=== PATIENT | female | born 1955 ===

== ENCOUNTER 2020-07-31 05:47 | Emergency (ER) | payer OTHER, SELFPAY ==
[2020-07-31 05:58] VITALS: BP 112/87; PULSE 100; RESP 18; TEMP 37.2; O2SAT 96
[2020-07-31 07:19] VITALS: BP 130/90; PULSE 100; RESP 20; TEMP 36.8; O2SAT 95; BMI 27.4
--- NOTE | 2020-07-31 07:27 | XR_ITS ---
EXAMINATION: XR CHEST CLINICAL INFORMATION: Cough. COMPARISON: None TECHNIQUE: Frontal view of the chest was obtained. FINDINGS: The lungs are well-expanded with patchy opacity in the right lung base likely summation shadow. However underlying developing infiltrate is not excluded. Mild increased interstitial markings are seen in both lung bases well. Heart size and vascularity is normal. No gross bony abnormality. XR/XR chest 1V IMPRESSION: Patchy focal opacity right lower lobe likely summation shadows from underlying ribs and vascular markings. Underlying infiltrate is hard to exclude. Recommend follow-up chest x-ray in 24 to 72 hours. There is increased interstitial markings in both lung bases as well.
--- NOTE | 2020-07-31 07:28 | ED.URI ---
HPI - URI/Sore Throat General Chief Complaint: Weakness Stated Complaint: bronchitis Time Seen by Provider: 07/31/20 07:24 Source: patient Mode of arrival: ambulatory Limitations: no limitations History of Present Illness HPI Narrative: THIS IS A 65 YEARS OLD OF FEMALE OR PRESENTED TO THE EMERGENCY DEPARTMENT WITH A CHIEF COMPLAINT OF WEAKNESS , COUGH, SHORTNESS OF BREATH. SHE DENIES ANY FEVER CHILLS VOMITING OR DIARRHEA. SHE DOES HAVE A HISTORY OF ASTHMA SHE IS A FORMER SMOKER. CURRENT SYMPTOMS STARTED 6 DAYS AGO MD elicited complaint: cough Pertinent past history: asthma Onset (ago): day(s) (6) Consistency: constant Severity: moderate Description of mucous: clear Able to tolerate fluids by mouth: Yes Exacerbating factors: nothing Relieving factors: nothing Associated symptoms: denies other symptoms Related Data Previous Rx's Medication Instructions Recorded doxycycline monohydrate 100 mg PO BID #20 cap 07/31/20 Allergies Allergy/AdvReac Type Severity Reaction Status Date / Time No Known Allergies Allergy Unverified 04/13/20 16:02 [No Known Allergies*] Review of Systems Review of Systems: Yes all other systems are reviewed and are negative Cardiovascular: Cardiovascular: Reports no additional cardiovascular complaints Respiratory: Respiratory: Reports no additional respiratory complaints Gastrointestinal: Gastrointestinal: Reports no additional gastrointestinal complaints Neurologic: Reports system reviewed and no additional complaints, except as documented PMFSH Past Medical History Attestation statement: The following information was validated with the patient. Medical History Asthma Surgical History History of hysterectomy History of hysterectomy for cancer History of hysterectomy for cancer Social History Social History Advance Directives: No Advance Directives Information Provided: No Physical Exam Vital Signs: Vital Signs: Last Vital Signs Temp 98.3 F 07/31/20 07:19 Pulse 100 07/31/20 07:19 Resp 20 07/31/20 07:19 BP 130/90 H 07/31/20 07:19 Pulse Ox 95 07/31/20 07:19 Body Mass Index 27.4 Const: Other: THE PATIENT IS AWAKE AND ALERT IN NOT ACUTE DISTRESS SITTING IN THE CHAIR DURING MY EXAM SHE HAS GOOD O2 SAT 96% ON ROOM AIR HENMT: Head: Yes normal to inspection Ears: hearing grossly normal bilaterally General nose exam: Normal external nose present Face and sinus: Yes normal facial exam Eyes: General: appearance normal, both eyes and all related structures Neck: Other: THE NECK IS SUPPLE FULL RANGE OF MOTION Chest: Chest palpation & inspection: normal inspection of the chest Resp: Other: LUNGS ARE CLEAR TO AUSCULTATION NO WHEEZING NO RALES Cardio: Other: REGULAR RATE AND RHYTHM Skin: Other: SKIN SHOWS NO RASHES Neuro: Other: PATIENT IS AWAKE AND ALERT ORIENTED X3 AND NEUROLOGICALLY INTACT Course Reevaluation(s) Reevaluation #1: She remained nontoxic a she is oxygenating well with her O2 sats were 96%, coronavirus test is positive, the chest x-ray showed lobar infiltrate today for I think is indicated on an antibiotic a week syndrome with the doxycycline 100 mg p.o. b.i.d.. Her chest x-ray he has no consistent with the COVID pneumonia but rather with the lobar pneumonitis Time: 09:22 MDM - URI/Sore Throat Lab Data Labs: Lab Results 07/31/20 Range/Units 07:39 Coronavirus (PCR) POSITIVE A (Negative) Influenza Type A (PCR) NEGATIVE (Negative) Influenza Type B (PCR) NEGATIVE (Negative) RSV RNA Qual (PCR) NEGATIVE (Negative) Discharge Plan Discharge Clinical Impression: Pneumonia, SARS-associated coronavirus infection Patient Disposition: Home, Self-Care Instructions: Pneumonia (ED) Additional Instructions: You tested positive for coronavirus, self-isolation he is recommended, you oxygenating well you do not meet criteria for admission. You chest x-ray showed the liver pneumonia therefore we sent an antibiotic as well to your pharmacy. Return if you worse a few short of breath Prescriptions: New doxycycline monohydrate 100 mg capsule 100 mg PO BID Qty: 20 RF: 0 Referrals: Po,Raphael Weaver MD [Primary Care Provider] - 2 days (PLEASE FOLLOW-UP WITH YOUR PRIMARY CARE PHYSICIAN IN A COUPLE OF DAYS YOU CHEST X-RAY RAISES THE QUESTION OF PNEUMONIA THEREFORE YOU WILL NEED FOLLOW-UP CHEST X-RAY IN ABOUT A WEEK TAKE THE ANTIBIOTIC DIRECTED) Stand Alone Forms: Work/School Release
[2020-07-31 08:55] LABS: Influenza A PCR NEGATIVE (Negative); Influenza B PCR NEGATIVE (Negative); Resp Syncy Virus RNA Qual PCR NEGATIVE (Negative); SARS COV2 PCR INHOUSE POSITIVE (Negative)
== END 2020-07-31 10:07 | disposition home or self-care (01) ==
PROVIDERS: Emergency Provider Emergency Medicine; PCP Internal Medicine
DX: U07.1 COVID-19 (principal)
CPT/HCPCS: 0241U; 36415; 71045; 99283

== ENCOUNTER 2020-08-14 10:24 | Outpatient (REF) | payer OTHER, SELFPAY ==
--- NOTE | 2020-08-14 10:29 | XR_ITS ---
EXAMINATION: XR CHEST CLINICAL INFORMATION: Pneumonia. Follow-up COMPARISON: None TECHNIQUE: 2 views of the chest were obtained. FINDINGS: The lungs are well-expanded with diffuse patchy airspace opacities seen in both lungs. Some of the opacities are peripherally based and extensive compared to previous chest x-ray 07/31/2020. Heart size and pulmonary vascularity is normal. No gross bony abnormality seen. XR/XR chest 2V IMPRESSION: Extensive bilateral infiltrates, peripherally based especially left lung. Findings are suspicious for Covid related infection.
== END 2020-08-14 10:25 | disposition home or self-care (01) ==
LOC: HO.XRAY 10:24
PROVIDERS: PCP Internal Medicine; Visit Provider Physician Assistant
DX: J18.9 Pneumonia, unspecified organism (principal)
CPT/HCPCS: 71046

== ENCOUNTER 2020-08-25 11:04 | Outpatient (REF) | payer OTHER, SELFPAY ==
--- NOTE | 2020-08-25 11:08 | XR_ITS ---
EXAMINATION: XR CHEST CLINICAL INFORMATION: Pneumonia. COMPARISON: 08/14/2019 and 07/31/2020 chest radiographs. TECHNIQUE: 2 views of the chest were obtained. FINDINGS: Persistent infiltrates are seen predominantly in the left midlung field peripherally without significant change. There is minimal blunting of the left costophrenic angle without significant change as well. Right lower lung infiltrates have mildly decreased. The heart and mediastinal structures are unremarkable. XR/XR chest 2V IMPRESSION: Bilateral infiltrates, left greater than right with mild interval improvement in the right lower lung.
== END 2020-08-25 11:05 | disposition home or self-care (01) ==
LOC: HO.XRAY 11:04
PROVIDERS: PCP Internal Medicine; Visit Provider Physician Assistant
DX: J18.9 Pneumonia, unspecified organism (principal); U07.1 COVID-19
CPT/HCPCS: 71046

== ENCOUNTER → 2020-10-12 14:04 | Outpatient (BNVA) | payer OTHER, SELFPAY | PROVIDERS: PCP Internal Medicine; Visit Provider Internal Medicine Pulmonary Disease ==

== ENCOUNTER 2020-10-18 13:41 | Outpatient (REF) | payer OTHER, SELFPAY ==
[2020-10-18 14:05] LABS: MANUAL DIFF FLAG NO
[2020-10-18 14:09] LABS: Basophils Percent Auto 0.5 % (0-2); Eosinophils Absolute Auto 0.1 X10*3/uL (0.0-0.4); Eosinophils Percent Auto 1.3 % (0-4); Hematocrit 36.6 % (37-47); Hemoglobin 12.3 g/dl (12.0-16.0); Imm Gran Abs Auto 0.02 X10*3/uL (0.00-0.03); Imm Gran Pct Auto 0.3 % (0.0-0.4); Lymphocytes Absolute Auto 3.4 X10*3/uL (1.2-4.9); Lymphocytes Percent Auto 43.6 % (20-40); Mean Corpuscular HGB Conc 33.6 g/dl (31.0-35.0); Mean Corpuscular Hemoglobin 32.1 pg (27.0-33.0); Mean Corpuscular Volume 95.6 fL (80-98); Mean Platelet Volume 10.2 fL (9.4-12.3); Monocytes Absolute Auto 0.5 X10*3/uL (0.1-1.2); Monocytes Percent Auto 6.4 % (2-11); Neutrophils Absolute Auto 3.7 X10*3/uL (2.0-8.3); Neutrophils Percent Auto 47.9 % (45-73); Platelet Count 223 X10*3/uL (160-400); Red Blood Count 3.83 X10*6/uL (4.20-5.50); Red Cell Distribution Width 13.3 % (11.0-16.0); White Blood Count 7.8 X10*3/uL (4.8-10.8)
== END 2020-10-18 13:42 | disposition home or self-care (01) ==
LOC: HO.LAB 13:41
PROVIDERS: PCP Internal Medicine; Visit Provider Internal Medicine Pulmonary Disease
DX: Z91.09 Other allergy status, other than to drugs and biological substances (principal)
CPT/HCPCS: 36415; 82785; 85025; 86003

== ENCOUNTER 2020-10-27 07:33 | Outpatient (REF) | payer OTHER, SELFPAY ==
--- NOTE | ~2020-10-27 | CT_ITS ---
EXAMINATION: CT CHEST WITHOUT CONTRAST CLINICAL INFORMATION: Follow-up pulmonary nodule COMPARISON: Previous exams most recent chest CT December 2013 and chest x-ray July 2020 TECHNIQUE: Multidetector volumetric CT imaging of the chest was done. Axial MIP volume rendering provided. Sagittal and coronal reformatted images were obtained. This CT examination was performed using dose optimization techniques as appropriate, variously including the following: *Automated exposure control *Adjustment of mA and/or kV according to patient size (this includes techniques or standardized protocols for targeted exams where dose is matched to indication/reason for exam; i.e. extremities or head) *Use of iterative reconstruction technique DLP: 142 mGy-cm FINDINGS: LUNGS: There is interval increase in size in the superior segment left lower lobe nodule. This measures 7 x 10 mm axial image 154 series 7 compared to 4 x 6 mm on previous exam. There is a 2 mm calcified right upper lobe nodule axial image 185 series 7 that is stable. There is nodular thickening along the right major fissure that is stable. There is a 3 mm right lower lobe nodule axial image 329 series 7 that is stable. There is a 3 mm peripheral or subpleural calcified right lower lobe nodule axial image 273 and lingular nodule axial image 273 series 7 that is stable. There are increased peripheral or subpleural reticular markings and increased parenchymal attenuation that is new. MEDIASTINUM: The mediastinum is normal. PLEURA: There is no pleural effusion. No pleural mass or thickening. AXILLA: No axillary lymphadenopathy. There is a new small nodule in the left breast that measures 6 mm. Axial image 19 series 3, sagittal reconstructed image 17 and coronal reconstructed image 5 Correlation with mammogram and if needed ultrasound could be considered.. There is a new subcutaneous nodule in the right upper posterior back that measures 1 x 2 cm this is only partially visualized. Hounsfield units measure 30 not compatible with a simple cystic or fatty lesion. This is not appreciated on recent most recent exam from 2013. This is increased in size from 8 x 13 mm on February 2013 exam. UPPER ABDOMEN: There is a low-attenuation lesion in the left lobe of the liver that measures 2.7 cm that is stable. OSSEOUS STRUCTURES: There are mild degenerative changes of the spine. CT/CT chest wo con IMPRESSION: Interval increase in left lower lobe nodule now measuring 7 x 10 mm. Other small calcified and noncalcified pulmonary nodules are stable. New increased peripheral interstitial lung markings and attenuation. It is uncertain whether this is related to previous pneumonia or could represent interstitial lung disease.. New 6 mm left central breast nodule. Correlation with mammogram and ultrasound recommended.
== END 2020-10-27 07:34 | disposition home or self-care (01) ==
LOC: HO.CT 07:33
PROVIDERS: PCP Internal Medicine; Visit Provider Internal Medicine Pulmonary Disease
DX: R91.1 Solitary pulmonary nodule (principal)
CPT/HCPCS: 71250

== ENCOUNTER → 2020-11-21 14:52 | Outpatient (BNVA) | payer OTHER, SELFPAY | PROVIDERS: PCP Internal Medicine; Visit Provider Internal Medicine Pulmonary Disease ==

== ENCOUNTER 2021-03-08 13:36 | Outpatient (REF) | payer OTHER, SELFPAY ==
--- NOTE | ~2021-03-08 | CT_ITS ---
EXAMINATION: CT CHEST WITHOUT CONTRAST CLINICAL INFORMATION: Solitary pulmonary nodule. COMPARISON: Most recent CT chest dated 10/27/2020. TECHNIQUE: Multidetector volumetric CT imaging of the chest was done. Axial MIP volume rendering provided. Sagittal and coronal reformatted images were obtained. This CT examination was performed using dose optimization techniques as appropriate, variously including the following: *Automated exposure control *Adjustment of mA and/or kV according to patient size (this includes techniques or standardized protocols for targeted exams where dose is matched to indication/reason for exam; i.e. 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 LUNGS: Redemonstration of a soft tissue nodule within the apex of the left lower lobe measuring 1.0 x 0.7 cm, not significantly changed. Stable anterior right upper lobe 0.2 cm calcified granuloma. Stable 0.3 cm subpleural nodule within the right lower lobe (axial image 370/617). Additional stable tiny calcified granulomas. No new pulmonary nodule or mass. Bibasilar atelectasis versus scarring, unchanged. No new large, confluent airspace consolidation. The central airways are patent. MEDIASTINUM: No cardiomegaly. No pericardial effusion. No thoracic aortic dilatation. No superior mediastinal or hilar lymphadenopathy. PLEURA: There is no pleural effusion. No pleural mass or thickening. CHEST WALL/AXILLA: Stable soft tissue nodule within the left breast measuring up to 0.7 cm, unchanged. No new axillary or internal mammary lymphadenopathy. UPPER ABDOMEN: Stable probable fatty infiltration adjacent to the falciform ligament. Otherwise, the visualized upper abdominal structures are unremarkable. OSSEOUS STRUCTURES: Unremarkable. CT/CT chest wo con IMPRESSION: 1. Stable soft tissue nodule within the apex of the left lower lobe measuring 1.0 cm, not significantly changed. Additional stable tiny calcified and noncalcified pulmonary nodules. Bibasilar atelectasis versus scarring appears unchanged. 2. No new pulmonary nodule, mass, or airspace consolidation. 3. Stable soft tissue nodule measuring 0.7 cm within the left breast. No new axillary or internal mammary lymphadenopathy.
== END 2021-03-08 13:37 | disposition home or self-care (01) ==
LOC: HO.CT 13:36
PROVIDERS: PCP Internal Medicine; Visit Provider Internal Medicine Pulmonary Disease
DX: R91.1 Solitary pulmonary nodule (principal)
CPT/HCPCS: 71250

== ENCOUNTER → 2021-05-15 13:24 | Outpatient (BNVA) | payer OTHER, SELFPAY | PROVIDERS: PCP Internal Medicine; Visit Provider Internal Medicine Pulmonary Disease ==

== ENCOUNTER → 2021-08-07 13:15 | Outpatient (BNVA) | payer OTHER, SELFPAY | PROVIDERS: PCP Internal Medicine; Visit Provider Internal Medicine Pulmonary Disease ==

== ENCOUNTER 2022-03-07 13:09 | Outpatient (REF) | payer OTHER, SELFPAY ==
--- NOTE | ~2022-03-07 | CT_ITS ---
EXAMINATION: CT CHEST WITHOUT CONTRAST CLINICAL INFORMATION: Lung nodule. COMPARISON: CT chest 03/08/2021, 10/27/2020, 01/20/2014 and 03/03/2013. TECHNIQUE: Multidetector volumetric CT imaging of the chest was done. Axial MIP volume rendering provided. Sagittal and coronal reformatted images were obtained. This CT examination was performed using dose optimization techniques as appropriate, variously including the following: *Automated exposure control *Adjustment of mA and/or kV according to patient size (this includes techniques or standardized protocols for targeted exams where dose is matched to indication/reason for exam; i.e. 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 LUNGS: There is 9 x 6 mm nodule in the superior segment of the left lower lobe (axial image 17/3). It measured [address] 03/03/2013. It has increased in size. There are clustered nodular densities seen in the left upper lobe with reticular stranding (image 20/3). There is subpleural linear stranding throughout the left lower lobe, likely chronic atelectasis or scarring, similar to the previous study. Punctate 2 mm right upper lobe calcified nodule (image 22/3); a 3 mm nodule, subpleural location, in the right lower lobe (axial image 395/8 and image 362/8) are stable. Multiple patchy ill-defined opacities in the left lower lobe show minimal improvement. There are atelectatic changes or scarring in the lingula. MEDIASTINUM: The thyroid lobes are symmetric and normal. Central trachea and the bronchi are widely patent. The heart size and the great vessels are normal caliber. No abnormal-sized lymph nodes are seen. No pericardial effusion. PLEURA: There is no pleural effusion. No pleural mass or thickening. AXILLAE: No lymphadenopathy. UPPER ABDOMEN: The visualized liver, spleen and adrenal glands are unremarkable. OSSEOUS STRUCTURES: No lytic or sclerotic process seen. CT/CT chest wo con IMPRESSION: Minimal increase in the left lower lobe superior segment nodule since 2012. Ill-defined ground-glass opacities in the left lower lobe show minimal improvement since 03/08/2021. Bilateral lower lobe scarring or atelectatic changes and other nodules are stable since 2020. No new pulmonary nodule or mass is seen. Fleischner guidelines were followed.
== END 2022-03-07 13:10 | disposition home or self-care (01) ==
LOC: HO.CT 13:09
PROVIDERS: PCP Internal Medicine; Visit Provider Internal Medicine Pulmonary Disease
DX: R91.1 Solitary pulmonary nodule (principal)
CPT/HCPCS: 71250

== ENCOUNTER 2022-05-02 14:05 | Outpatient (REF) | payer OTHER, SELFPAY ==
--- NOTE | ~2022-05-02 | XR_ITS ---
EXAMINATION: XR CHEST CLINICAL INFORMATION: COPD COMPARISON: Chest x-ray 08/25/2020, chest CT 03/07/2022 TECHNIQUE: 2 views of the chest were obtained. FINDINGS: No airspace consolidation. Curvilinear/mild streaky opacities in the right lung base and mid to lower lung consistent with subsegmental atelectasis or scarring. No pleural effusion or pneumothorax. Approximately 7 mm nodular density projecting over the left upper lung corresponding to the superior segment pulmonary nodule on prior CT. Normal cardiomediastinal silhouette and pulmonary vascularity. No acute osseous injury. Unchanged mild chronic wedging of a lower thoracic vertebral body at the thoracolumbar junction. XR/XR chest 2V IMPRESSION: 1. Mild subsegmental atelectasis or scarring bilaterally left greater than right. 2. No acute pulmonary process. 3. 7 mm nodular density in the left lung corresponding to the superior segment left lower lobe nodule on CT.
== END 2022-05-02 14:06 | disposition home or self-care (01) ==
LOC: HO.XRAY 14:05
PROVIDERS: PCP Internal Medicine; Visit Provider Internal Medicine Pulmonary Disease
DX: J44.9 Chronic obstructive pulmonary disease, unspecified (principal)
CPT/HCPCS: 71046

== ENCOUNTER 2022-09-24 12:41 | Emergency (ER) | payer OTHER, SELFPAY ==
--- NOTE | ~2022-09-24 | XR_ITS ---
EXAMINATION: XR CHEST CLINICAL INFORMATION: Chest pain COMPARISON: Chest radiograph 05/02/[address] chest 03/07/2022. TECHNIQUE: 2 views of the chest were obtained. FINDINGS: Cardiac and mediastinal silhouettes are normal in appearance. The lungs and pleural spaces are clear. The left lung pulmonary nodule seen on CT is not clearly visualized on this exam. No acute osseous abnormality. XR/XR chest 2V IMPRESSION: No evidence of pulmonary edema or acute consolidation. The previously noted pulmonary nodule seen on the CT chest of 03/07/2022 is is not evaluated on this exam.
--- NOTE | ~2022-09-24 | CT_ITS ---
EXAMINATION: CT ANGIOGRAM OF THE CHEST WITH AND WITHOUT CONTRAST (CT PULMONARY ANGIOGRAM FOR PE) CLINICAL INFORMATION: Reason for Exam cp/sob tachycardia questioning PE COMPARISON: 03/07/2022, 10/27/2020 and 03/03/2013 TECHNIQUE: Prior to contrast administration, noncontrast localization images were obtained. Subsequently, multidetector volumetric imaging was performed from the thoracic inlet to below the diaphragms following the administration of 65 mL Omnipaque 350 intravenous contrast. No contrast reaction reported Sagittal, coronal, and MIP oblique sagittal reformatted images were obtained on the CT workstation, uploaded to PACS, and reviewed. This CT examination was performed using dose optimization techniques as appropriate, variously including the following: *Automated exposure control *Adjustment of mA and/or kV according to patient size (this includes techniques or standardized protocols for targeted exams where dose is matched to indication/reason for exam; i.e. extremities or head) *Use of iterative reconstruction technique Total exam dose-length product 678 mGy-cm FINDINGS: QUALITY OF STUDY/CONTRAST BOLUS: Satisfactory. PULMONARY ARTERIES: No central or segmental pulmonary emboli. THORACIC AORTA: No aneurysm or dissection. LUNG: There is a 9 mm pulmonary nodule in the superior segment of the left lower lobe on image 142 of series 7 which is unchanged from 11/15/2021 and increased in size from 5 mm on the study from 03/03/2013, possibly a hamartoma. There is a 1 cm nodule in the lateral aspect of the left upper lobe which has lobular margins and is increased in size from 5 mm on the prior study. Multiple small adjacent satellite nodules are evident within this region along the bronchial distribution, measuring up to 5 mm in diameter, increased as compared to prior. Multiple small separate nodules are evident in the left upper lobe in a peripheral distribution, increased in size as compared to prior with subtle groundglass attenuation measuring up to 5 mm in diameter as seen on image 129 of series 7. New focal airspace consolidation is evident within the left lingula anteriorly. Linear, reticular subpleural opacities are again seen in the posterior aspects of the lower lobes bilaterally. Central airways are clear. PLEURA: No pleural effusion or pneumothorax. MEDIASTINUM: Normal heart size. No pericardial effusion. No hilar or mediastinal lymphadenopathy. No evidence of septal bowing or right heart strain. CORONARY ARTERY CALCIFICATION: None visualized on this study. CHEST WALL/AXILLA: No axillary or internal mammary lymphadenopathy. OSSEOUS STRUCTURES: Mild degenerative disc disease is evident in the lower thoracic spine. No acute fracture or malalignment. A sebaceous cyst is present in the posterior subcutaneous fat at the cephalad margin of the study, overlying the T1 spinous process. UPPER ABDOMEN: A 2.5 cm hypoattenuating lesion in hepatic segment 4A is unchanged and at 05/16/2013. No acute findings in the upper abdomen. No reflux of contrast into the hepatic veins to suggest elevated right heart pressures. CT/CT angio chest PE protocol IMPRESSION: 1. No evidence of pulmonary emboli. 2. New focal airspace consolidation in the left lingula, concerning for pneumonia 3. Multiple pulmonary nodules in the left upper lobe, the largest of which measures 1 cm in diameter. These nodules have increased in size as compared to prior and may correspond to an inflammatory endobronchial process, though no malignancy excluded. Continued follow-up is advised. Consider CT at 3-6 months, then consider CT at 18-24 months. VTE: negative
--- NOTE | 2022-09-24 12:42 | ECG_ITS ---
Test Reason : sob Blood Pressure : / mmHG Vent. Rate : 129 BPM Atrial Rate : 129 BPM P-R Int : 136 ms QRS Dur : 084 ms QT Int : 294 ms P-R-T Axes : 046 022 040 degrees QTc Int : 430 ms Sinus tachycardia Otherwise normal ECG When compared with ECG of 09-SEP-2015 07:20, Vent. rate has increased BY 49 BPM Referred By: Generic ED Physician Electronically Signed By:JERAMY AVELAR MD
[2022-09-24 12:53] VITALS: BP 137/66; PULSE 128; RESP 16; TEMP 36.9; O2SAT 98; BMI 31.4
[2022-09-24 13:15] LABS: MANUAL DIFF FLAG NO
[2022-09-24 13:18] LABS: Basophils Absolute Auto 0.1 X10*3/uL (0.0-0.2); Basophils Percent Auto 0.3 % (0-2); Eosinophils Percent Auto 0.2 % (0-4); Hematocrit 37.4 % (37.0-47.0); Hemoglobin 12.3 g/dl (12.0-16.0); Imm Gran Pct Auto 0.6 % (0.0-0.4); Lymphocytes Absolute Auto 2.7 X10*3/uL (1.2-4.9); Lymphocytes Percent Auto 16.1 % (20-40); Mean Corpuscular HGB Conc 32.9 g/dl (31.0-35.0); Mean Corpuscular Hemoglobin 31.6 pg (27.0-33.0); Mean Corpuscular Volume 96.1 fL (80.0-98.0); Mean Platelet Volume 10.6 fL (9.4-12.3); Monocytes Absolute Auto 0.9 X10*3/uL (0.1-1.2); Monocytes Percent Auto 5.6 % (2-11); Neutrophils Absolute Auto 12.7 x10*3/uL (2.0-8.3); Neutrophils Percent Auto 77.2 % (45-73); Platelet Count 214 X10*3/uL (160-400); Red Blood Count 3.89 X10*6/uL (4.20-5.50); Red Cell Distribution Width 12.7 % (11.0-16.0); White Blood Count 16.5 X10*3/uL (4.8-10.8)
[2022-09-24 13:21] LABS: Prothrombin Time 11.4 SEC (10.0-13.1)
--- NOTE | 2022-09-24 13:22 | PC.NURSE ---
Patient states, her blood is usually thin. iv started bleeding she wants to hold off on aspirin till blood comes back. Kanika SUMMERS notified. Tele: sinus tachycardia 120's patient c/o 7/10 chest pain that radiates to back. Patient states she had just taken 2 puffs of albuterol inhaler before she came to us.
[2022-09-24 13:36] LABS: Alanine Aminotransferase 25 U/L (0-31); Albumin Level 4.2 g/dL (3.5-5.0); Alkaline Phosphatase 74 U/L (39-117); Anion Gap 14 (12-20); Aspartate Amino Transferase 18 U/L (5-31); Blood Urea Nitrogen 21 mg/dL (9-16); Calcium 8.9 mg/dL (8.4-10.2); Carbon Dioxide 25 mmol/L (22-29); Chloride 106 mmol/L (96-108); Creatinine Clr Calc Pharmacy 71.4; Estimated Glomerular Filt Rate > 60; Glucose Random 185 mg/dL (60-115); Magnesium 1.7 mg/dL (1.6-2.6); Potassium 4.2 mmol/L (3.3-5.1); Sodium 141 mmol/L (135-145); Total Protein 6.7 g/dL (6.5-8.0)
[2022-09-24 13:41] LABS: B Type Natriuretic Peptide < 10 pg/mL (<100)
[2022-09-24 13:45] LABS: Troponin-I High Sensitivity < 3.5 ng/L (<3.5-17.0)
[2022-09-24] MEDS: Morphine Sulfate 4 MG/ML CARTRIDGE IVPUSH (14:03)
[2022-09-24] MEDS: ondansetron HCL 4 MG/2 ML VIAL IVPUSH (14:03)
[2022-09-24] MEDS: Aspirin 81 MG TAB.CHEW 324 MG PO (14:04)
[2022-09-24 14:54] VITALS: BP 142/76; PULSE 112; RESP 18; TEMP 36.9; O2SAT 97
--- NOTE | 2022-09-24 16:15 | ED_ITS ---
HPI - Chest Pain General Chief Complaint: Chest Pain <MELINA Covarrubias Last Filed: 09/24/22 18:44> Stated Complaint: chest pain <MELINA Covarrubias Last Filed: 09/24/22 18:44> Time Seen by Provider: 09/24/22 12:55 <MELINA Covarrubias Last Filed: 09/24/22 18:44> Source: patient <MELINA Covarrubias Last Filed: 09/24/22 18:44> Mode of arrival: ambulatory <MELINA Covarrubias Last Filed: 09/24/22 18:44> Limitations: no limitations <MELINA Covarrubias Last Filed: 09/24/22 18:44> History of Present Illness HPI narrative: 67yoF with a PMHx of asthma and lung nodule who has a CT scan once a year last scan was January 2022 who is presenting to the ER with complaints of left- sided chest pain that is radiating to her left arm/back that is a 7/10 pain that started 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 She reports she has been having a dry cough intermittently and she thought it was related to her cough/asthma. She did take her inhaler although no symptomatic relief. Therefore she came here for further evaluation treatment. She denies any dizziness, change in vision, headaches, neck pain/stiffness, jaw pain, nausea/vomiting, paresthesias, dyspnea on exertion, orthopnea, palpitations, paresthesias, abdominal pain, black or bloody stools, lower extremity edema or calf tenderness, recent falls or trauma, hypercoagulation disorder, any estrogen usage, recent surgery, IV drug use, recent immobilization, rashes or any other symptoms complaints or concerns at this time. <MELINA Covarrubias Last Filed: 09/24/22 18:44> MD complaint: chest pain <MELINA Covarrubias Last Filed: 09/24/22 18:44> Onset (ago): hour(s) (started around 11:30am) <MELINA Covarrubias Last Filed: 09/24/22 18:44> Timing of current episode: constant <MELINA Covarrubias Last Filed: 09/24/22 18:44> Prior episodes: No <MELINA Covarrubias - Last Filed: 09/24/22 18:44> Onset: other (While working) <MELINA Covarrubias Last Filed: 09/24/22 18:44> Pain location: left chest <MELINA Covarrubias - Last Filed: 09/24/22 18:44> Pain radiation: left arm <MELINA Covarrubias - Last Filed: 09/24/22 18:44> Severity: mild <MELINA Covarrubias - Last Filed: 09/24/22 18:44> Quality: other (Patient reports it feels like a bowling ball sitting on my chest ) <MELINA Covarrubias - Last Filed: 09/24/22 18:44> Relieving factors: nothing <MELINA Covarrubias - Last Filed: 09/24/22 18:44> Exacerbating factors: nothing <MELINA Covarrubias Last Filed: 09/24/22 18:44> Associated symptoms: dyspnea and cough <EMLINA Covarrubias - Last Filed: 09/24/22 18:44> Treatment prior to arrival: other (2 puffs of her inhaler for asthma) <MELINA Covarrubias - Last Filed: 09/24/22 18:44> Risk Factors Coronary artery disease risk factors: none <MELINA Covarrubias - Last Filed: 09/24/22 18:44> Thoracic aortic dissection risk factors: none <MELINA Covarrubias Last Filed: 09/24/22 18:44> Related Data On Oral Contraceptives: No <MELINA Covarrubias - Last Filed: 09/24/22 18:44> Home Medications: Home Medications Medication Instructions Recorded Confirmed omeprazole 20 mg capsule,delayed 20 mg PO DAILY 10/12/20 release Previous Rx's Medication Instructions Recorded montelukast 10 mg tablet 10 mg PO DAILY 30 days #30 tabs 10/12/20 (Singulair) albuterol sulfate 90 mcg/actuation 2 puff inhalation Q6H PRN 10/02/21 aerosol inhaler shortness of breath or wheezing #8.5 grams prednisone 10 mg tablet 40 mg PO DAILY 5 days #20 tabs 04/23/22 azithromycin 250 mg tablet See Rx Instructions PO .COMPLEX 5 05/02/22 days #6 tabs tiotropium bromide 2.5 2 inh inhalation QAM 30 days #4 09/10/22 mcg/actuation mist for inhalation grams (Spiriva Respimat) albuterol sulfate 90 mcg/actuation 2 inh inhalation Q4-6H PRN 09/24/22 breath activated powder inhaler shortness of breath or wheezing #1 ea benzonatate 100 mg capsule 100 mg PO BID PRN cough #20 caps 09/24/22 doxycycline hyclate 100 mg capsule 100 mg PO BID 10 days #20 caps 09/24/22 prednisone 20 mg tablet 40 mg PO DAILY 5 days #10 tabs 09/24/22 <MELINA Covarrubias - Last Filed: 09/24/22 18:44> Allergies/Adverse Reactions: Allergies Allergy/AdvReac Type Severity Reaction Status Date / Time No Known Allergies Allergy Verified 03/20/22 13:14 [No Known Allergies*] <MELINA Covarrubias - Last Filed: 09/24/22 18:44> Review of Systems Review of Systems: Constitutional : No Weight loss, No Fever, No Chills, No Night Sweats, No Fatigue, No Malaise ENT/Mouth : No Hearing loss, No Ear Pain, No Nasal Congestion, No Sinus Pain, No Hoarseness, No sore throat, No Rhinorrhea, No Swallowing Difficulty Eyes: No Eye Pain, No Swelling, No Redness, No Foreign Body, No Discharge, No Vision Changes Cardiovascular : + Chest Pain, + SOB, No Dyspnea on Exertion, No Orthopnea, No Edema, No Palpitations Respiratory : + Cough, No Sputum, + Wheezing, No Smoke Exposure, N+Dyspnea Gastrointestinal : No Nausea, No Vomiting, No Diarrhea, No Constipation, No abdominal Pain, No Hematochezia, No Melena Genitourinary : no irregular bleeding, No Dysuria, No Urinary Frequency, No Hematuria, No Urinary Incontinence, No Urgency, No Flank Pain, No Urinary Flow Changes, No Hesitancy Musculoskeletal : No joint pain, No Myalgias, No Joint Swelling Skin : No Skin Lesions, No rash Neuro : No Weakness, No Numbness, No Paresthesias, No Loss of Consciousness, No Dizziness, No Headache Psych : No Anxiety/Panic, No Depression, No SI/HI/AH/VH, No Social Issues, Heme/Lymph: No Bruising, No Bleeding,No Lymphadenopathy Endocrine : No Polyuria, No Polydipsia, No Temperature Intolerance <MELINA Covarrubias - Last Filed: 09/24/22 18:44> Yes all other systems are reviewed and are negative <MELINA Covarrubias - Last Filed: 09/24/22 18:44> [facility] Past Medical History Attestation statement: The following information was validated with the patient. <MELINA Covarrubias - Last Filed: 09/24/22 18:44> Source: old records reviewed and nursing notes reviewed <MELINA Covarrubias - Last Filed: 09/24/22 18:44> Surgical History: Surgical History History of hysterectomy History of hysterectomy for cancer History of hysterectomy for cancer <MELINA Covarrubias - Last Filed: 09/24/22 18:44> Social History Social History: Social History Alcohol intake: current Alcohol intake frequency: a few times a week Alcohol type: beer Smoked in Last 30 Days: No Use of substances other than those prescribed or required for medical reasons: No Advance Directives: No Advance Directives Information Provided: Yes <MELINA Covarrubias - Last Filed: 09/24/22 18:44> Physical Exam Vital Signs: Vital Signs: Last Vital Signs Temp 98.4 F 09/24/22 14:54 Pulse 112 H 09/24/22 14:54 Resp 18 09/24/22 14:54 BP 142/76 H 09/24/22 14:54 Pulse Ox 97 09/24/22 14:54 O2 Del Method 09/24/22 14:54 BMI result Body Mass Index 31.4 vital signs have been reviewed as normal and appeared to be correct. Blood pressure normal. Heart rate 128. Respiration rate normal. Temperature normal. Oxygen saturation normal. <MELINA Covarrubias - Last Filed: 09/24/22 18:44> Vital Signs: Last Vital Signs Temp 98.4 F 09/24/22 14:54 Pulse 112 H 09/24/22 14:54 Resp 18 09/24/22 14:54 BP 142/76 H 09/24/22 14:54 Pulse Ox 97 09/24/22 14:54 O2 Del Method 09/24/22 14:54 BMI result Body Mass Index 31.4 <MELINA Zamora - Last Filed: 09/24/22 20:10> Appearance: Alert. Oriented X3. No acute distress. Head: Normal external exam. Normocephalic. Atraumatic. Eyes: PERRLA. EOMI. Conjunctiva and sclera normal. Eyelids normal. ENT: Pharynx normal. Uvula midline. Moist mucous membranes. No lesions/ulcerations or masses noted on the tongue. Normal voice. No trismus noted. No drooling noted. No muffled voice noted. Neck: Normal inspection. Neck supple. FROM. No adenopathy. Thyroid Normal. No tracheal deviation noted. No crepitus is noted. No meningeal signs. No neck mass noted. No signs of trauma noted. CVS: Normal heart rate and rhythm. Heart sound normal. Pulses normal throughout. No murmurs/rales/gallops. Respiratory: No respiratory distress. Painless inspiration. Breath sounds normal. No wheezes/rales/rhonchi noted. Chest nontender. No crepitus is noted. No accessory muscle usage noted or decreased air movement noted. No signs of tr auma. Abdomen: Soft and nontender. Nondistended. No guarding. No rigidity. Bowel sounds normal in all 4 quadrants. No distention noted. No organomegaly noted. No visible injury noted. No rebound tenderness. Negative Rovsing sign. Negative obturator's sign. Negative psoas sign. Negative Green sign. Back: No CVA tenderness. Full range of motion noted. Nontender. No signs of trauma. Patient neuro intact bilaterally and distally on all 4 extremities. Patient's reflexes intact bilaterally and distally on all 4 extremities. No rashes/lesion/induration/fluctuance or signs of infection noted. Skin: Skin warm and dry. Normal skin color. Normal skin turgor. No rashes/lesions/lacerations noted. Extremities: No lower extremity edema. No calf tenderness is noted. Extremities exhibit normal range of motion and nontender. Neuro: Oriented X 3. No motor deficit. No sensory deficit. Reflexes normal. Normal steady gait. No focal neuro deficits noted. CN's II-XII intact bilateral ly? Vascular: + radial pulses/+ 2 distal pedal pulses/+2 dorsalis pedis b/l. Normal cap refill. No cyanosis noted to upper extremity nails and lower extremity toes nails. 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 She reports she has been having a dry cough intermittently and she thought it was related to her cough/asthma. She did take her inhaler although no symptomatic relief. Plan: Will obtain labs, EKG, chest x-ray placed on a monitor and storage bin tender provide a L of IV fluids, 324 mg of aspirin and 4 mg of Zofran and 4 mg of morphine and re-evaluate. <MELINA Covarrubias Last Filed: 09/24/22 18:44> Reevaluation(s) Reevaluation #1: Labs reviewed - Leukocytosis of 16,000 - BUN 21. - random glucose 185. - total CPK 191 - 2 sets of troponin negative - BNP less than 10 Otherwise all other labs are within normal limits Imaging Chest x-ray negative for any acute processes EKG is sinus tachycardia otherwise no acute ischemic change are noted. I did offer observation although patient does not want to be here any longer I had to convince her to have the CTA due to her lung nodule she did not want another CT scan until January although I did convince her. Although she does not want to be admitted. Therefore was able to convince the patient to have a CTA of her chest due to her cough, shortness of breath, chest pain and her tachycardia. Therefore at this time patient CTA of chest for PE is currently pending. Although her tachycardia has improved after the L of IV fluids. Sign out to PIOTR Morales pending results of CTA. <MELINA Covarrubias Last Filed: 09/24/22 18:44> Time: 18:38 <MELINA Covarrubias Last Filed: 09/24/22 18:44> Reevaluation #2: CTA with no signs of pulmonary embolism or VTE. No evidence of pulmonary embolism. There is a focal airspace consolidation in the left lingula concerning for pneumonia. Multiple pulmonary nodules are noted, educated patient on these findings. Patient will be discharged home with doxycycline to cover for community-acquired pneumonia will give prednisone as well as albuterol inhaler. Will give something for cough as well. Educated patient on diagnosis and treatment plan, answered all question, patient verbalizes understanding. At this time patient will be discharged home, advised to return with new or worsening symptoms. Educated on worrisome signs and symptoms and when to return. At this time I feel comfortable discharge home. Prior to discharge patient will do an ambulatory trial with nursing, O2 sat to remain greater than 90% prior to DC home <MELINA Zamora - Last Filed: 09/24/22 20:10> Time: 20:06 <MELINA Zamora - Last Filed: 09/24/22 20:10> Medications Administered Discontinued Medications Generic Name Dose Route Start Last Admin Trade Name Freq PRN Reason Stop Dose Admin Aspirin 324 mg 09/24/22 13:02 09/24/22 14:04 Aspirin 81 Mg Tab.Chew PO 09/24/22 13:03 324 mg ONCE ONE Administration Sodium Chloride 1,000 mls @ 999 mls/hr 09/24/22 17:00 09/24/22 18:36 Ns IVCONT 09/24/22 18:00 Infused .Q1H1M MARILYN Infusion Iohexol 100 ml 09/24/22 18:49 09/24/22 18:50 Iohexol 350 Mg/Ml 100 Ml Infus..Btl IV 09/24/22 18:50 65 ml ONCE ONE Administration Morphine Sulfate 4 mg 09/24/22 13:57 09/24/22 14:03 Morphine Sulfate 4 Mg/Ml Cartridge IVPUSH 09/24/22 13:58 4 mg ONCE ONE Administration Protocol Ondansetron HCl 4 mg 09/24/22 13:57 09/24/22 14:03 Ondansetron Hcl 4 Mg/2 Ml Vial IVPUSH 09/24/22 13:58 4 mg ONCE ONE Administration <MELINA Covarrubias - Last Filed: 09/24/22 18:44> Medications Administered Discontinued Medications Generic Name Dose Route Start Last Admin Trade Name Freq PRN Reason Stop Dose Admin Aspirin 324 mg 09/24/22 13:02 09/24/22 14:04 Aspirin 81 Mg Tab.Chew PO 09/24/22 13:03 324 mg ONCE ONE Administration Sodium Chloride 1,000 mls @ 999 mls/hr 09/24/22 17:00 09/24/22 18:36 Ns IVCONT 09/24/22 18:00 Infused .Q1H1M MARILYN Infusion Iohexol 100 ml 09/24/22 18:49 09/24/22 18:50 Iohexol 350 Mg/Ml 100 Ml Infus..Btl IV 09/24/22 18:50 65 ml ONCE ONE Administration Morphine Sulfate 4 mg 09/24/22 13:57 09/24/22 14:03 Morphine Sulfate 4 Mg/Ml Cartridge IVPUSH 09/24/22 13:58 4 mg ONCE ONE Administration Protocol Ondansetron HCl 4 mg 09/24/22 13:57 09/24/22 14:03 Ondansetron Hcl 4 Mg/2 Ml Vial IVPUSH 09/24/22 13:58 4 mg ONCE ONE Administration <MELINA Zamora - Last Filed: 09/24/22 20:10> Medical Decision Making Lab Data MDM Lab Attestation statement: I reviewed the patient's lab results. <MELINA Covarrubias - Last Filed: 09/24/22 18:44> Result Diagrams: 09/24/22 13:07 09/24/22 13:07 <MELINA Covarrubias - Last Filed: 09/24/22 18:44> Labs: Lab Results 09/24/22 09/24/22 09/24/22 Range/Units 13:07 13:07 13:07 WBC 16.5 H (4.8-10.8) X10*3/uL RBC 3.89 L (4.20-5.50) X10*6/uL Hgb 12.3 (12.0-16.0) g/dl Hct 37.4 (37.0-47.0) % MCV 96.1 (80.0-98.0) fL MCH 31.6 (27.0-33.0) pg MCHC 32.9 (31.0-35.0) g/dl RDW 12.7 (11.0-16.0) % Plt Count 214 (160-400) X10*3/uL MPV 10.6 (9.4-12.3) fL Immature Gran % (Auto) 0.6 H (0.0-0.4) % Neut % (Auto) 77.2 H (45-73) % Lymph % (Auto) 16.1 L (20-40) % [place] % (Auto) 5.6 (2-11) % Eos % (Auto) 0.2 (0-4) % Baso % (Auto) 0.3 (0-2) % Lymph # (Auto) 2.7 (1.2-4.9) X10*3/uL [place] # (Auto) 0.9 (0.1-1.2) X10*3/uL Eos # (Auto) 0.0 (0.0-0.4) X10*3/uL Baso # (Auto) 0.1 (0.0-0.2) X10*3/uL Abs Immat Gran (auto) 0.10 H (0.00-0.03) X10*3/uL Absolute Neuts (auto) 12.7 H (2.0-8.3) x10*3/uL Absolute Nucleated RBC 0.000 (0.0-0.012) X10*3/uL Nucleated RBC % (auto) 0.0 (0.0-0.2) /100WBC PT 11.4 (10.0-13.1) SEC INR 1.0 (0.9-1.1) D-Dimer High Sensitivty < 150 NG/ML Sodium 141 (135-145) mmol/L Potassium 4.2 (3.3-5.1) mmol/L Chloride 106 (96-108) mmol/L Carbon Dioxide 25 (22-29) mmol/L Anion Gap 14 (12-20) BUN 21 H (9-16) mg/dL Creatinine 0.88 (0.5-1.4) mg/dL Estim Creat Clear Calc 71.4 Estimated GFR > 60 Random Glucose 185 H (60-115) mg/dL Calcium 8.9 (8.4-10.2) mg/dL Magnesium 1.7 (1.6-2.6) mg/dL Total Bilirubin 1.0 (0.0-1.0) mg/dL AST 18 (5-31) U/L ALT 25 (0-31) U/L Alkaline Phosphatase 74 (39-117) U/L Total Creatine Kinase 191 H (26-140) U/L Troponin I High Sens (<3.5-17.0) ng/L B-Natriuretic Peptide (<100) pg/mL Total Protein 6.7 (6.5-8.0) g/dL Albumin 4.2 (3.5-5.0) g/dL TSH 1.51 (0.32-4.0) uIU/mL 09/24/22 09/24/22 09/24/22 Range/Units 13:07 13:07 16:12 WBC (4.8-10.8) X10*3/uL RBC (4.20-5.50) X10*6/uL Hgb (12.0-16.0) g/dl Hct (37.0-47.0) % MCV (80.0-98.0) fL MCH (27.0-33.0) pg MCHC (31.0-35.0) g/dl RDW (11.0-16.0) % Plt Count (160-400) X10*3/uL MPV (9.4-12.3) fL Immature Gran % (Auto) (0.0-0.4) % Neut % (Auto) (45-73) % Lymph % (Auto) (20-40) % [place] % (Auto) (2-11) % Eos % (Auto) (0-4) % Baso % (Auto) (0-2) % Lymph # (Auto) (1.2-4.9) X10*3/uL [place] # (Auto) (0.1-1.2) X10*3/uL Eos # (Auto) (0.0-0.4) X10*3/uL Baso # (Auto) (0.0-0.2) X10*3/uL Abs Immat Gran (auto) (0.00-0.03) X10*3/uL Absolute Neuts (auto) (2.0-8.3) x10*3/uL Absolute Nucleated RBC (0.0-0.012) X10*3/uL Nucleated RBC % (auto) (0.0-0.2) /100WBC PT (10.0-13.1) SEC INR (0.9-1.1) D-Dimer High Sensitivty NG/ML Sodium (135-145) mmol/L Potassium (3.3-5.1) mmol/L Chloride (96-108) mmol/L Carbon Dioxide (22-29) mmol/L Anion Gap (12-20) BUN (9-16) mg/dL Creatinine (0.5-1.4) mg/dL Estim Creat Clear Calc Estimated GFR Random Glucose (60-115) mg/dL Calcium (8.4-10.2) mg/dL Magnesium (1.6-2.6) mg/dL Total Bilirubin (0.0-1.0) mg/dL AST (5-31) U/L ALT (0-31) U/L Alkaline Phosphatase (39-117) U/L Total Creatine Kinase (26-140) U/L Troponin I High Sens < 3.5 < 3.5 (<3.5-17.0) ng/L B-Natriuretic Peptide < 10 (<100) pg/mL Total Protein (6.5-8.0) g/dL Albumin (3.5-5.0) g/dL TSH (0.32-4.0) uIU/mL <MELINA Covarrubias - Last Filed: 09/24/22 18:44> Lab Results 09/24/22 09/24/22 09/24/22 Range/Units 13:07 13:07 13:07 WBC 16.5 H (4.8-10.8) X10*3/uL RBC 3.89 L (4.20-5.50) X10*6/uL Hgb 12.3 (12.0-16.0) g/dl Hct 37.4 (37.0-47.0) % MCV 96.1 (80.0-98.0) fL MCH 31.6 (27.0-33.0) pg MCHC 32.9 (31.0-35.0) g/dl RDW 12.7 (11.0-16.0) % Plt Count 214 (160-400) X10*3/uL MPV 10.6 (9.4-12.3) fL Immature Gran % (Auto) 0.6 H (0.0-0.4) % Neut % (Auto) 77.2 H (45-73) % Lymph % (Auto) 16.1 L (20-40) % [place] % (Auto) 5.6 (2-11) % Eos % (Auto) 0.2 (0-4) % Baso % (Auto) 0.3 (0-2) % Lymph # (Auto) 2.7 (1.2-4.9) X10*3/uL [place] # (Auto) 0.9 (0.1-1.2) X10*3/uL Eos # (Auto) 0.0 (0.0-0.4) X10*3/uL Baso # (Auto) 0.1 (0.0-0.2) X10*3/uL Abs Immat Gran (auto) 0.10 H (0.00-0.03) X10*3/uL Absolute Neuts (auto) 12.7 H (2.0-8.3) x10*3/uL Absolute Nucleated RBC 0.000 (0.0-0.012) X10*3/uL Nucleated RBC % (auto) 0.0 (0.0-0.2) /100WBC PT 11.4 (10.0-13.1) SEC INR 1.0 (0.9-1.1) D-Dimer High Sensitivty < 150 NG/ML Sodium 141 (135-145) mmol/L Potassium 4.2 (3.3-5.1) mmol/L Chloride 106 (96-108) mmol/L Carbon Dioxide 25 (22-29) mmol/L Anion Gap 14 (12-20) BUN 21 H (9-16) mg/dL Creatinine 0.88 (0.5-1.4) mg/dL Estim Creat Clear Calc 71.4 Estimated GFR > 60 Random Glucose 185 H (60-115) mg/dL Calcium 8.9 (8.4-10.2) mg/dL Magnesium 1.7 (1.6-2.6) mg/dL Total Bilirubin 1.0 (0.0-1.0) mg/dL AST 18 (5-31) U/L ALT 25 (0-31) U/L Alkaline Phosphatase 74 (39-117) U/L Total Creatine Kinase 191 H (26-140) U/L Troponin I High Sens (<3.5-17.0) ng/L B-Natriuretic Peptide (<100) pg/mL Total Protein 6.7 (6.5-8.0) g/dL Albumin 4.2 (3.5-5.0) g/dL TSH 1.51 (0.32-4.0) uIU/mL 09/24/22 09/24/22 09/24/22 Range/Units 13:07 13:07 16:12 WBC (4.8-10.8) X10*3/uL RBC (4.20-5.50) X10*6/uL Hgb (12.0-16.0) g/dl Hct (37.0-47.0) % MCV (80.0-98.0) fL MCH (27.0-33.0) pg MCHC (31.0-35.0) g/dl RDW (11.0-16.0) % Plt Count (160-400) X10*3/uL MPV (9.4-12.3) fL Immature Gran % (Auto) (0.0-0.4) % Neut % (Auto) (45-73) % Lymph % (Auto) (20-40) % [place] % (Auto) (2-11) % Eos % (Auto) (0-4) % Baso % (Auto) (0-2) % Lymph # (Auto) (1.2-4.9) X10*3/uL [place] # (Auto) (0.1-1.2) X10*3/uL Eos # (Auto) (0.0-0.4) X10*3/uL Baso # (Auto) (0.0-0.2) X10*3/uL Abs Immat Gran (auto) (0.00-0.03) X10*3/uL Absolute Neuts (auto) (2.0-8.3) x10*3/uL Absolute Nucleated RBC (0.0-0.012) X10*3/uL Nucleated RBC % (auto) (0.0-0.2) /100WBC PT (10.0-13.1) SEC INR (0.9-1.1) D-Dimer High Sensitivty NG/ML Sodium (135-145) mmol/L Potassium (3.3-5.1) mmol/L Chloride (96-108) mmol/L Carbon Dioxide (22-29) mmol/L Anion Gap (12-20) BUN (9-16) mg/dL Creatinine (0.5-1.4) mg/dL Estim Creat Clear Calc Estimated GFR Random Glucose (60-115) mg/dL Calcium (8.4-10.2) mg/dL Magnesium (1.6-2.6) mg/dL Total Bilirubin (0.0-1.0) mg/dL AST (5-31) U/L ALT (0-31) U/L Alkaline Phosphatase (39-117) U/L Total Creatine Kinase (26-140) U/L Troponin I High Sens < 3.5 < 3.5 (<3.5-17.0) ng/L B-Natriuretic Peptide < 10 (<100) pg/mL Total Protein (6.5-8.0) g/dL Albumin (3.5-5.0) g/dL TSH (0.32-4.0) uIU/mL <MELINA Zamora - Last Filed: 09/24/22 20:10> Independent Interpretation I performed an independent interpretation of an: EKG (Interval normal QRS duration normal QT/QTC interval. No acute ischemic change are noted. Similar compared to prior EKG 09/09/2015 although patient was not this tachycardic at that time.) and Plain X-Ray (I reviewed the results myself and discussed with patient) <MELINA Covarrubias - Last Filed: 09/24/22 18:44> Radiology Impression Discussion of test interpretation with radiology: I have reviewed the radiologist's reading. <MELINA Covarrubias - Last Filed: 09/24/22 18:44> Radiologist Impression: EXAMINATION: XR CHEST CLINICAL INFORMATION: Chest pain COMPARISON: Chest radiograph 05/02/[address] chest 03/07/2022. TECHNIQUE: 2 views of the chest were obtained. FINDINGS: Cardiac and mediastinal silhouettes are normal in appearance. The lungs and pleural spaces are clear. The left lung pulmonary nodule seen on CT is not clearly visualized on this exam. No acute osseous abnormality. XR/XR chest 2V IMPRESSION: No evidence of pulmonary edema or acute consolidation. ? The previously noted pulmonary nodule seen on the CT chest of 03/07/2022 is is not evaluated on this exam. <MELINA Covarrubias - Last Filed: 09/24/22 18:44> Chronic Conditions Patient?s care impacted by: Other (Pulmonary nodule) <MELINA Covarrubias - Last Filed: 09/24/22 18:44> Critical Care Time Critical Care Time Critical Care Time: Yes <MELINA Covarrubias - Last Filed: 09/24/22 18:44> Total Critical Care Time: 60 <MELINA Covarrubias Last Filed: 09/24/22 18:44> Attestation: I personally attest to this time spent taking care of the patient <MELINA Covarrubias Last Filed: 09/24/22 18:44> Discharge Plan Discharge Clinical Impression: Pneumonia, Chest pain, Sinus tachycardia <MELINA Covarrubias Last Filed: 09/24/22 18:44> Patient Disposition: Home, Self-Care <MELINA Covarrubias Last Filed: 09/24/22 18:44> Instructions: Chest Pain (DC), Asthma (ED), Pneumonia (ED), Tachycardia (ED) <MELINA Covarrubias Last Filed: 09/24/22 18:44> Additional Instructions: Take your medications as prescribed. If you were prescribed antibiotics today, it is important that you take your medication to their entirety, do not skip any doses, do not finish them early. Follow-up with your primary care provider this week. Return to the emergency department with new or worsening symptoms. Such as fevers, chills, chest pain, shortness of breath, nausea, vomiting, dizziness, headache, vision changes, lethargy In case of emergency call 911 <MELINA Covarrubias Last Filed: 09/24/22 18:44> Prescriptions: New doxycycline hyclate 100 mg capsule 100 mg PO BID 10 Days Qty: 20 0RF albuterol sulfate 90 mcg/actuation aerosol powdr breath activated 2 inh inhalation Q4-6H PRN (Reason: shortness of breath or wheezing) Qty: 1 0RF prednisone 20 mg tablet 40 mg PO DAILY 5 Days Qty: 10 0RF benzonatate 100 mg capsule 100 mg PO BID PRN (Reason: cough) Qty: 20 0RF No Action albuterol sulfate 90 mcg/actuation HFA aerosol inhaler 2 puff inhalation Q6H PRN (Reason: shortness of breath or wheezing) Qty: 8.5 6RF prednisone 10 mg tablet 40 mg PO DAILY 5 Days Qty: 20 0RF azithromycin 250 mg tablet See Rx Instructions PO .COMPLEX 5 Days Qty: 6 0RF Rx Instructions: For 250 mg dose pack: take 500 mg today (day 1), then 250 mg for 4 days (days 2-5) PO Spiriva Respimat 2.5 mcg/actuation mist 2 inh inhalation QAM 30 Days Qty: 4 6RF omeprazole 20 mg capsule,delayed release(DR/EC) 20 mg PO DAILY montelukast [Singulair] 10 mg tablet 10 mg PO DAILY 30 Days Qty: 30 6RF <MELINA Covarrubias - Last Filed: 09/24/22 18:44> Referrals: Po,Raphael Weaver MD [Primary Care Provider] - 1 day (Call to make a follow- up appointment this week for further evaluation treatment) <MELINA Covarrubias - Last Filed: 09/24/22 18:44> Stand Alone Forms: Work/School Release <MELINA Covarrubias - Last Filed: 09/24/22 18:44>
[2022-09-24 16:39] LABS: Troponin-I High Sensitivity < 3.5 ng/L (<3.5-17.0)
[2022-09-24] MEDS: 0.9 % Sodium Chloride 1,000 ML 999 ML IVCONT (17:20)
[2022-09-24 18:10] LABS: D Dimer High Sensitivity < 150 NG/ML
[2022-09-24 18:41] LABS: Thyroid Stimulating Hormone 1.51 uIU/mL (0.32-4.0)
[2022-09-24] MEDS: iohexoL 350 MG/ML 100 ML INFUS..BTL IV (18:50)
[2022-09-24 20:27] VITALS: BP 140/90; PULSE 110; RESP 20; TEMP 36.8; O2SAT 97
[2022-09-24] MEDS: Albuterol Sulfate 90 MCG 8 GM INHALER 2 PUFF INHALE (20:35)
[2022-09-24 20:42] LABS: Appearance Urine Clear; Color Urine Yellow; Glucose Urine UA Negative (Negative); Leukocyte Esterase Urine Negative (Negative); Nitrite Urine Negative (Negative); PH 5.5 (5.0-9.0); Urine Blood Negative (Negative); Urine Ketones Negative (Negative); Urine Protein Negative (Neg-Trace)
[2022-09-24] MEDS: Doxycycline Monohydrate 100 MG CAPSULE PO (21:27)
== END 2022-09-24 21:27 | disposition home or self-care (01) ==
PROVIDERS: Physician Assistant Medical; Emergency Provider Emergency Medicine Emergency Medical Services; PCP Internal Medicine
DX: J18.9 Pneumonia, unspecified organism (principal); R07.89 Other chest pain; R00.0 Tachycardia, unspecified; R06.02 Shortness of breath; Z79.899 Other long term (current) drug therapy
CPT/HCPCS: 36415; 71046; 71275; 80053; 81003; 82550; 83735; 83880; 84443; 84484; 85025; 85379; 85610; 93005; 96361; 96374; 96375; 99284; 99285; J2270; J2405; Q9967

== ENCOUNTER → 2022-10-01 13:22 | Outpatient (BNVA) | payer OTHER, SELFPAY | PROVIDERS: PCP Internal Medicine; Visit Provider Internal Medicine Pulmonary Disease | DX: Z13.89 Encounter for screening for other disorder (principal) ==

== ENCOUNTER → 2022-10-03 12:50 | Outpatient (REF) | payer OTHER, SELFPAY ==
--- NOTE | 2022-10-03 12:52 | CA_ITS ---
Transthoracic Echocardiogram Patient (Last, First, Middle): Lia Nunez D Gender: Female Date of : 1955 Age: 67 Procedure Date: 10/03/2022 Procedure Type: Transthoracic Echocardiogram Location: OP Height: 167.64 cm Weight: 85.73 kg BSA: 1.95 m2 Heart Rate: 106 bpm BP: 128 / 74 mmHg Rental Management Trainee: SB Referring MD: Marino Miller MD Symptoms: R06.09 - Other forms of dyspnea Study Quality: Adequate ECG Rhythm: Sinus tachycardia Conclusions: - The left ventricular systolic function is normal. The calculated ejection fraction is 59% by biplane method. - E/E prime ratio is <8, consistent with normal filling pressures. - No obvious valvular pathology seen on this study. - There is no evidence of pulmonary hypertension. - There is no evidence of pericardial effusion. Findings Left Ventricle Normal left ventricular cavity size. The left ventricular systolic function is normal. The calculated ejection fraction is 59% by biplane method. There is no evidence of regional wall motion abnormalities. Diastolic function is normal for age. E/E prime ratio is <8, consistent with normal filling pressures. There is mild septal asymmetric hypertrophy. LV peak GLS -17.2%. Right Ventricle Normal right ventricular cavity size and systolic function. Atria Both atria are normal in size. Aortic Valve There is a normal trileaflet aortic valve. There is no aortic valve stenosis. There is no aortic valve regurgitation. Mitral Valve The mitral valve appears normal. There is no mitral valve regurgitation. There is no mitral valve stenosis. Pulmonic Valve The pulmonic valve is likely normal. Tricuspid Valve Normal tricuspid valve structure. There is no tricuspid valve regurgitation. There is no evidence of pulmonary hypertension. Great Vessels The asc aorta is normal in size. Venous The inferior vena cava is normal in size and collapses greater than 50% with inspiration. Pericardium/Pleural There is no evidence of pericardial effusion. Prior Study Comparison No significant change compared to prior study dated: 01/05/2019. Recommendations, Care & Conclusions No obvious valvular pathology seen on this study. Measurements 2D Linear Measurements IVSd: 1.15 0.6-0.9/0.6-1.0 cm LVIDd: 4.31 3.9-5.3/4.2-5.9 cm LVIDd Index: 2.21 2.4-3.2/2.2-3.1 cm/m2 LVIDs: 2.73 2.0-3.6 cm LVPWd: 0.86 0.7-1.1 cm LA Diam: 4.10 2.7-3.8/3.0-4.0 cm LAIDs Index: 2.10 1.5-2.3 cm/m2 LV Mass: 179.02 67-162/88-224 g LV Mass Index: 91.80 43-95/49-115 g/m2 LVOT Diam: 2.30 3.0+(-)1.3 cm 2D Systolic Function EF 4C: 57.00 >55% EF 2C: 60.40 >55% EF BiP: 59.10 >55% Mitral Valve MV Pk E: 0.57 MV PK A: 0.72 MV Decel Time: 183.00 E/A: 0.80 E'Lateral: 8.92 E'Medial: 7.40 E/E' Med: 7.70 E/E' Lat: 6.40 PHT: 54.00 MVA PHT: 4.07 Decel Jess[place]: 3.12 Aortic Valve AoV Pk [place]: 1.20 AoV Pk Grad: 6.00 JOSSIE: 3.29 LVOT LVOT Pk [place]: 0.91 LVOT Mn [place]: 0.69 LVOT VTI: 0.19 LVOT Pk Grad: 3.00 LVOT Mn Grad: 2.00 LVOT Diam: 2.30 LVOT Area: 4.15 Diastolic Function MV Pk E: 0.57 MV Pk A: 0.72 E/A: 0.80 E'Medial: 7.40 E/E' Med: 7.70 E' Laterial: 8.92 E/E' Lat: 6.40 Right Ventricle TAPSE (mm): 22.20 TVS' [place]: 16.20 Tricuspid Valve TR Pk [place]: 2.22 TR Pk Grad: 20.00 RA Press: 3.00 RVSP: 23.00 Great Vessels Aorta Sinus of Valsalva: 3.00 2.0-3.5 cm Ao Asc: 3.50 2.1-3.4 cm Pulmonary Valve PV Pk [place]: 0.99 Peak PV Grad: 4.00 Updated in Other Vendor System with Status of Final Dawood Bustos MD electronically signed on 10/05/2022 12:34:50 PM with status of Final
== END ==
LOC: HO.CARD 12:50
PROVIDERS: PCP Internal Medicine; Visit Provider Internal Medicine Pulmonary Disease
DX: R06.09 Other forms of dyspnea (principal)
CPT/HCPCS: 93306; 93356

== ENCOUNTER 2023-02-04 14:18 | Outpatient (AMB) | payer OTHER, SELFPAY ==
--- NOTE | 2023-02-04 14:20 | MHC.OFFVIS ---
Intake Vital Signs 02/04/23 14:21 Height 5 ft 6 in Weight 191 lb BMI 30.8 BP 110/80 Pulse 76 Pulse Oximetry (%) 97 Intake Visit Reasons: copd Intake Note: pt had CT done in the ER. she was also restarted on incruse inhaler. she states her breathing has been heavy due to he weather. Allergies No Known Allergies [No Known Allergies*] Allergy (Verified 02/04/23 14:21) HPI copd HPI Details 67-year-old lady, former 40+ pack-year smoker, quit 2017, followed for asthma/COPD overlap syndrome. Patient has been using Incruse and albuterol MDI, now with suboptimal control of her symptoms, complain with slowly worsening dyspnea, particularly with heart in humid days. She denies active exacerbation. [facility] Surgical History History of hysterectomy History of hysterectomy for cancer History of hysterectomy for cancer Social History Alcohol intake: current Alcohol intake frequency: a few times a week Alcohol type: beer Review of Systems Const Denies daytime sleepiness, Denies excessive sweating, Denies fatigue, Denies fever(s), Denies lethargy, Denies malaise, Denies night sweats, Denies snoring and Denies weight loss Eyes Denies blurry vision and Denies itchy eyes ENT Denies nasal congestion, Denies post nasal drip, Denies sinus pain, Denies sinus pressure and Denies other ( Thrush) Card Denies chest pain, Denies pedal edema, Denies dyspnea, Denies orthopnea and Denies paroxysmal nocturnal dyspnea Resp Denies cough, Denies hemoptysis, Denies excessive phlegm production, Denies dyspnea, Denies snoring and Denies wheezing GI Denies abdominal pain and Denies heartburn Musc Denies myalgias, Denies arthralgias and Denies joint swelling Skin/Breast Denies rash Neuro Denies memory loss and Denies seizure-like activity Psych Denies abnormal sleep pattern, Denies anxiety and Denies memory loss Endo Denies excessive sweating, Denies fatigue and Denies heat intolerance Garry/Lymph Denies easy bruising Aller/Immun Denies itchy eyes, Denies seasonal rhinorrhea and Denies wheezing Physical Exam Vital Signs: Last Vital Signs Pulse 76 02/04/23 14:21 BP 110/80 02/04/23 14:21 Pulse Ox 97 02/04/23 14:21 BMI result Body Mass Index 30.8 Const General: no acute distress and alert Nutritional Appearance: not obese Orientation/consciousness: Other orientation findings ( oriented) HEENT Head: Yes atraumatic Eyes General: appearance normal, both eyes and all related structures Sclerae: sclerae normal EOM: EOMs intact bilaterally Neck Neck: Yes supple Lymphatic: no lymphadenopathy noted Resp Effort & Inspection: normal respiratory effort and no use of accessory muscles Auscultation: clear to auscultation bilaterally Cardio Rate: regular rate Rhythm: regular rhythm Heart sounds: no gallops, no murmurs and no rubs Skin General skin exam: other ( warm) Extrem General: No clubbing, No cyanosis and No edema Assessment & Plan Assessment & Plan (1) Asthma-COPD overlap syndrome: Code(s): J44.9 - Chronic obstructive pulmonary disease, unspecified Plan: Suboptimal control Incruse, will change to Anoro. Continue albuterol MDI. (2) Environmental allergies: Code(s): Z91.09 - Other allergy status, other than to drugs and biological substances Plan: Well controlled on the current regimen. Continue montelukast. Medications: New umeclidinium-vilanterol 62.5-25 mcg/actuation (Anoro Ellipta) 1 inh inhalation DAILY 1 ea 6RF 30 days Discontinued umeclidinium 62.5 mcg/actuation (Incruse Ellipta) Discontinued Reason: Doctor's Order 1 inh inhalation DAILY 1 ea 6RF 30 days Coding Level of Care Code Est Pt Level 4 (74190) Diagnoses Asthma-COPD overlap syndrome J44.9 Environmental allergies Z91.09
[2023-02-04 14:21] VITALS: BP 110/80; PULSE 76; O2SAT 97; BMI 30.8
== END 2023-02-04 14:41 | disposition home or self-care (01) ==
PROVIDERS: PCP Internal Medicine; Visit Provider Internal Medicine Pulmonary Disease
DX: J44.9 Chronic obstructive pulmonary disease, unspecified (principal); Z91.09 Other allergy status, other than to drugs and biological substances
CPT/HCPCS: 99214

== ENCOUNTER → 2023-02-04 14:18 | Outpatient (BNVA) | payer OTHER, SELFPAY | PROVIDERS: PCP Internal Medicine; Visit Provider Internal Medicine Pulmonary Disease ==

== ENCOUNTER 2023-04-22 11:15 | Outpatient (REF) | payer OTHER, SELFPAY ==
--- NOTE | ~2023-04-22 | XR_ITS ---
EXAMINATION: XR HAND, RIGHT CLINICAL INFORMATION: Hand pain and unable to bend fifth digit COMPARISON: None available. TECHNIQUE: PA, lateral, and oblique views of the right hand. FINDINGS: No acute fracture or dislocation. There is flexion of the fifth digit at the metacarpophalangeal joint across all films limiting evaluation. Moderate degenerative changes of the first metacarpophalangeal joint with loss of joint space. Soft tissues are unremarkable. XR/XR hand RT min 3V IMPRESSION: 1. Moderate degenerative changes of the first metacarpophalangeal joint with loss of joint space. 2. There is flexion of the fifth digit at the metacarpophalangeal joint across all films limiting evaluation.
== END 2023-04-22 11:16 | disposition home or self-care (01) ==
LOC: HO.HOSX 11:15
PROVIDERS: Visit Provider Orthopaedic Surgery
DX: M79.641 Pain in right hand (principal); M72.0 Palmar fascial fibromatosis [Dupuytren]; R20.0 Anesthesia of skin; J44.9 Chronic obstructive pulmonary disease, unspecified
CPT/HCPCS: 73130

== ENCOUNTER 2023-04-22 13:38 | Outpatient (AMB) | payer OTHER, SELFPAY ==
[2023-04-22 14:23] VITALS: BMI 30.8
--- NOTE | 2023-04-22 14:23 | MHC.OFFVIS ---
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 States she pinky has contracted inwards towards her palm in the last 3 years. At times she has numbness in her ring and pinky finger. At times she has a sharp shooting pain to her elbow. Denies bracing, O.T or injections. 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 She says her right small finger has been sumit towards her palm for the last ~3 years now. She also complains of numbness in the ring and small fingers of her right hand. Symptoms intermittent, but daily, worse at night. She says she occasionally has a sharp shooting pain from the ulnar aspect of her hand travelling to her elbow. She denies any injuries or prior treatment. 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 Review of Systems Const All systems reviewed & are unremarkable except as noted in HPI and below Physical Exam Vital Signs: BMI result Body Mass Index 30.8 Const General: cooperative, healthy appearing and no acute distress Orientation/consciousness: patient oriented x3 HEENT Head: Yes normocephalic and Yes atraumatic Eyes EOM: EOMs intact bilaterally Resp Effort & Inspection: normal respiratory effort and able to speak in complete sentences Cardio Jugular venous distension: no JVD Skin General skin exam: turgor normal Rashes: no rashes Neuro General: patient oriented x3 Extrem Other: Evaluation of Right Upper Extremity: The patient is alert, oriented, and in no acute distress Neuro: Normal sensation in the median nerve distribution. Decreased sensation in the ulnar nerve distribution today No thenar or intrinsic wasting Good APB muscle belly firing and good finger cross Vascular: Cap refill brisk ROM: She can make a fist and extend her thumb, index, middle, and ring fingers She has a rather significant Dupuytrens contracture of her small finger MCP 90/PIP 70 She has a Dupuytrens cord extending from her palm up the small finger to almost the DIP joint with some thickening over the proximal phalanx Skin: No lacerations or abrasions. General: No Ecchymosis. No Erythema or evidence of infection. Radiographs: 3 views of the right hand were taken and viewed by me today in clinic. They show no fractures or dislocations. Her small finger is in quite a bit of flexion compared to her adjacent digits on the lateral and PA films. Psych Appearance: grossly normal Affect: normal affect Attitude: cooperative Assessment & Plan Assessment & Plan (1) Dupuytren's contracture of right hand: Comment: Small finger Code(s): M72.0 - Palmar fascial fibromatosis [Dupuytren] (2) Numbness of right hand: Code(s): R20.0 - Anesthesia of skin (3) Asthma-COPD overlap syndrome: Code(s): J44.9 - Chronic obstructive pulmonary disease, unspecified Plan Assessment & Plan: 1. Right small finer Dupuytrens contracture: MCP 90/PIP 70 I educated her about this condition I discussed operative and non-operative treatment options The patient would like to proceed with surgery The risks and benefits of operative treatment were discussed with the patient and the patient wishes to proceed with surgery. These risks include, but are not limited to risk of damage to blood vessels, nerves, tendons, infection, recurrence, incomplete relief of preoperative symptoms, persistent pain, possible need for further surgery and the risks associated with regional blocks and anesthesia. The plan is to take the patient to the operating room sometime in the next few weeks for the following procedures: 1. Right small finger partial fasciectomy, under general All of the preoperative paperwork including the consent was filled out today. All the patient's questions were answered. The patient understands that they will be contacted by our central scheduler soon to schedule this procedure She denies Diabetes, blood thinners, heart, kidney issues She has COPD and asthma, She has an inhaler she uses but she says this is well controlled overall She has not seen her PCP in several years, she will need clearance from either her PCP or supervisor tan room prior to surgery 2. Right hand numbness In the ulnar nerve distribution Symptoms intermittent, but daily, worse at night or with activities I ordered a NCS to assess for peripheral neuropathy vs cervical radiculopathy She will follow up when completed for review This will likely be addressed separately from her Dupuytren's contracture. Scribed for Jacquelyn Chatterjee MD by Jesse Waldrop, medical referral coordinator, on 04/22/23 at 3:15 PM, EST. Orders: Orders NE nerve conduction velocity Today R20.0 - Anesthesia of skin, R20.2 - Paresthesia of skin XR hand RT min 3V Today M79.641 - Pain in right hand Coding Level of Care Code New Pt Level 4 (42858) Diagnoses Dupuytren's contracture of right hand M72.0 Numbness of right hand R20.0 Asthma-COPD overlap syndrome J44.9
== END 2023-04-22 15:39 | disposition home or self-care (01) ==
PROVIDERS: PCP Internal Medicine; Visit Provider Orthopaedic Surgery
DX: M72.0 Palmar fascial fibromatosis [Dupuytren] (principal)
CPT/HCPCS: 99204

== ENCOUNTER 2023-04-28 14:11 | Outpatient (AMB) | payer OTHER, SELFPAY ==
[2023-04-28 14:36] VITALS: BP 109/72; PULSE 108; O2SAT 97; BMI 31.3
--- NOTE | 2023-04-28 14:36 | A.OFFVIS_ITS ---
Intake Vital Signs 04/28/23 14:36 Height 5 ft 6 in Weight 194 lb 0.108 oz BMI 31.3 BP 109/72 Blood Pressure Location Lt brachial Position Sitting Pulse 108 H Pulse Source Doppler Pulse Oximetry (%) 97 Oxygen Delivery Method Room Air Intake Visit Reasons: Duputryn Procedure - [facility] - 05/22 Allergies No Known Allergies [No Known Allergies*] Allergy (Verified 04/28/23 14:40) HPI Duputryn Procedure - [facility] - 05/22 HPI Details 67-year-old lady, former 40+ pack-year s shanda, quit 2017, followed for asthma/COPD overlap syndrome. Patient has been using albuterol MDI and Anoro with reasonable control of her underlying symptoms. She denies any recent exacerbations. 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 Review of Systems Const Denies daytime sleepiness, Denies excessive sweating, Denies fatigue, Denies fever(s), Denies lethargy, Denies malaise, Denies night sweats, Denies snoring and Denies weight loss Eyes Denies blurry vision and Denies itchy eyes ENT Denies nasal congestion, Denies post nasal drip, Denies sinus pain, Denies sinus pressure and Denies other ( Thrush) Card Denies chest pain, Denies pedal edema, Denies dyspnea, Denies orthopnea and Denies paroxysmal nocturnal dyspnea Resp Denies cough, Denies hemoptysis, Denies excessive phlegm production, Denies dyspnea, Denies snoring and Denies wheezing GI Denies abdominal pain and Denies heartburn Musc Denies myalgias, Denies arthralgias and Denies joint swelling Skin/Breast Denies rash Neuro Denies memory loss and Denies seizure-like activity Psych Denies abnormal sleep pattern, Denies anxiety and Denies memory loss Endo Denies excessive sweating, Denies fatigue and Denies heat intolerance Garry/Lymph Denies easy bruising Aller/Immun Denies itchy eyes, Denies seasonal rhinorrhea and Denies wheezing Physical Exam Vital Signs: Last Vital Signs Pulse 108 H 04/28/23 14:36 BP 109/72 04/28/23 14:36 Pulse Ox 97 04/28/23 14:36 Oxygen Delivery Method Room Air 04/28/23 14:36 BMI result Body Mass Index 31.3 Const General: no acute distress and alert Nutritional Appearance: not obese Orientation/consciousness: Other orientation findings ( oriented) HEENT Head: Yes atraumatic Eyes General: appearance normal, both eyes and all related structures Sclerae: sclerae normal EOM: EOMs intact bilaterally Neck Neck: Yes supple Lymphatic: no lymphadenopathy noted Resp Effort & Inspection: normal respiratory effort and no use of accessory muscles Auscultation: clear to auscultation bilaterally Cardio Rate: regular rate Rhythm: regular rhythm Heart sounds: no gallops, no murmurs and no rubs Skin General skin exam: other ( warm) Extrem General: No clubbing, No cyanosis and No edema Assessment & Plan Assessment & Plan (1) Asthma-COPD overlap syndrome: Code(s): J44.9 - Chronic obstructive pulmonary disease, unspecified Plan: Reasonably well controlled current regimen of Anoro and albuterol MDI. Continue current regimen. (2) Preop pulmonary/respiratory exam: Code(s): Z01.811 - Encounter for preprocedural respiratory examination Plan: At this time patient is at low risk for pulmonary preoperative complications for the proposed orthopedic hand procedure under general anesthesia. Coding Level of Care Code Est Pt Level 4 (08007) Diagnoses Asthma-COPD overlap syndrome J44.9 Preop pulmonary/respiratory exam Z01.811
== END 2023-04-28 14:48 | disposition home or self-care (01) ==
PROVIDERS: PCP Internal Medicine; Visit Provider Internal Medicine Pulmonary Disease
DX: J44.9 Chronic obstructive pulmonary disease, unspecified (principal); Z01.811 Encounter for preprocedural respiratory examination
CPT/HCPCS: 99214

== ENCOUNTER → 2023-04-28 14:11 | Outpatient (BNVA) | payer OTHER, SELFPAY | PROVIDERS: PCP Internal Medicine; Visit Provider Internal Medicine Pulmonary Disease ==

== ENCOUNTER 2023-05-19 07:36 | Outpatient (AMB) | payer OTHER, SELFPAY ==
[2023-05-19 07:47] VITALS: BP 128/76; PULSE 90; O2SAT 98; BMI 31.3
--- NOTE | 2023-05-19 07:47 | A.OFFPC_ITS ---
Vital Signs 05/19/23 07:47 Height 5 ft 6 in Weight 194 lb BMI 31.3 BP 128/76 Blood Pressure Location Lt brachial Position Sitting Pulse 90 Pulse Source Pulse Oximeter Pulse Oximetry (%) 98 Oxygen Delivery Method Room Air Intake Visit Reasons: Right small finger dupuytrens [id number] Allergies No Known Allergies [No Known Allergies*] Allergy (Verified 05/19/23 07:48) Tobacco use date assessed: 05/19/23 Fall risk assessment: No Falls in past year Last assessed Fall Risk: 05/19/23 Dental Screening Dental Screen Date: 05/19/23 Did you have a dental visit in the last 12 months?: No Did you have a dental problem in the last 6 months where you did not have access to dental care?: No Was dental information given to patient?: Patient has dentist HPI HPI Comments History of Present Illness Details 68-year-old female past medical history significant asthma/COPD, environmental allergies. Patient of Dr. Bergman last seen a few years ago. Patient presents today for preop appointment for right small finger Dupuytren's fasciectomy on 05/22/2023 under general anesthesia with Jacquelyn Chatterjee . pre- op labs obtained today and unremarkable, BUN slightly elevated at 19, creatinine normal 0.76. EKG normal sinus rhythm. Patient denies any chest pain, palpitations and syncope. Patient reports baseline has some shortness of breath due to her COPD. 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 1. Little interest or pleasure in doing things: not at all 2. Feeling down, depressed, or hopeless: not at all 3. Trouble falling or staying asleep, or sleeping too much: not at all 4. Feeling tired or having little energy: not at all 5. Poor appetite or overeating: not at all 6. Feeling bad about yourself - or that you are a failure or have let yourself or your family down: not at all 7. Trouble concentrating on things, such as reading the newspaper or watching television: not at all 8. Moving or speaking so slowly that other people could have noticed. Or the opposite - being so fidgety or restless that you have been moving around a lot more than usual: not at all Depression Screening Interpretation: Negative Depression Screening Done: Yes Source: Developed by Drs. Jesus Asher, Ryann Flores, Stephen Turner and colleagues, with an educational carlitos from [employer]. Thrive Questionnaire Date Thrive assessed: 05/19/23 I am a: Patient What is your living situation today?: I have a steady place to live Within the past 12 months, did the food you bought not last and you didn't have the money to get more?: Never true Within the past 12 months, did you worry whether your food would run out before you got money to buy more?: Never true Do you have trouble paying for medicines?: No Do you have trouble getting transportation to medical appointments?: No Do you have trouble paying your heating and electricity bill?: No Do you have trouble taking care of your child, family member or friend?: No Do you have trouble with day-to-day activities such as bathing, preparing meals, shopping, managing finances, etc.?: No Are you currently unemployed and looking for a job?: No Are you interested in more education?: No Currently or been in a relationship where the following occur: no concerns reported AUDIT C Alcohol Use Questionnaire (AUDIT-C) 1. How often do you have a drink containing alcohol?: Monthly or less 2. How many drinks containing alcohol do you have on a typical day when you are drinking?: 1 or 2 3. How often do you have six or more drinks on one occasion?: Never Total Score: 1 JACKIE-7 AMB Questionnaire JACKIE-7 Date JACKIE - 7 assessed: 05/19/23 Feeling nervous, anxious, or on edge: 0 = Not at all Not being able to stop or control worryin = Not at all Worrying too much about different things: 0 = Not at all Trouble relaxin = Not at all Being so restless that it is hard to sit still: 0 = Not at all Becoming easily annoyed or irritable: 0 = Not at all Feeling afraid as if something awful might happen: 0 = Not at all Total JACKIE-7 score (0-4 normal; 5-9 mild; 10-14 moderate; 15-21 severe): 0 Source: Developed by Drs. Jesus Asher, Ryann Flores, Stephen Turner and colleagues, with an educational carlitos from [employer]. Review of Systems Const Denies chills, Denies fatigue, Denies fever(s) and Denies poor appetite Eyes Denies no additional complaints ENT Reports Normal hearing present Card Denies chest pain, Denies syncope, Denies rapid heart rate and Denies dyspnea Resp Denies cough and Denies dyspnea GI Denies change in stool character, Denies constipation, Denies diarrhea, Denies nausea and Denies vomiting Denies urinary frequency, Denies dysuria and Denies urinary urgency Neuro Reports Normal hearing present, Denies confusion and Denies syncope Psych Denies confusion Endo Denies fatigue Physical exam (Primary Care) Vital Signs: Last Vital Signs Pulse 90 05/19/23 07:47 BP 128/76 05/19/23 07:47 Pulse Ox 98 05/19/23 07:47 Oxygen Delivery Method Room Air 05/19/23 07:47 BMI result Body Mass Index 31.3 Tobacco/Smoking Status: Tobacco use Status Tobacco use date assessed 05/19/23 05/19/23 07:50 Patient Tobacco Use Status Former Tobacco user 05/19/23 08:00 Tobacco use type Cigarette 05/19/23 07:50 e-Cigarette/Vaping Use Never Used 05/19/23 07:50 Depression Screening Interpretation: Negative Thrive Assessment: Date of Thrive Assessment Date Thrive assessed 05/19/23 05/19/23 07:58 Currently or been in a relationship where the following occur: no concerns reported Const General: No confusion Orientation/consciousness: No confusion HENMT Head: Yes normocephalic and Yes atraumatic Eyes Conjunctivae: conjunctivae normal Chest Chest palpation & inspection: normal inspection of the chest Resp Effort & Inspection: normal respiratory effort Auscultation: clear to auscultation bilaterally, no crackles, no rhonchi and no wheezes Cardio Rate: regular rate Rhythm: regular rhythm Heart sounds: S1 normal heart sound present and S2 normal heart sound present GI Inspection: Yes normal to inspection Neuro General: No confusion Cranial nerves: Yes Normal hearing present Extrem General: No edema Assessment and Plan Assessment & Plan (1) Encounter for pre-operative examination: Code(s): Z01.818 - Encounter for other preprocedural examination Plan: EKG: NSR Preop labs unremarkable. Calderon surgical risk: 0.0% Risk of myocardial infarction or cardiac arrest, intraoperatively or up to 30 days post-op. Based on above examination, lab work and EKG. Patient is of average risk to undergo scheduled surgery, No further workup needed at this time and patient can proceed with scheduled surgery. (2) Asthma-COPD overlap syndrome: Code(s): J44.9 - Chronic obstructive pulmonary disease, unspecified Plan: Continue on current inhalers. Orders: Orders TSH reflex Free T4 Today Z13.29 - Encounter for screening for other suspected endocrine disorder Prothrombin Time INR Today Z01.818 - Encounter for other preprocedural examination Comprehensive Met. Panel Today Z01.818 - Encounter for other preprocedural examination Complete Blood Count Auto Diff Today Z13.0 - Encounter for screening for diseases of the blood and blood-forming organs and certain disorders involving the immune mechanism Coding Level of Care Code Est Pt Level 3 (27544) Diagnoses Encounter for pre-operative examination Z01.818 Asthma-COPD overlap syndrome J44.9
== END 2023-05-19 09:00 | disposition home or self-care (01) ==
PROVIDERS: PCP Internal Medicine; Visit Provider Nurse Practitioner Family
DX: Z01.818 Encounter for other preprocedural examination (principal); J44.9 Chronic obstructive pulmonary disease, unspecified
CPT/HCPCS: 99213

== ENCOUNTER 2023-05-19 08:33 | Outpatient (REF) | payer OTHER, SELFPAY ==
[2023-05-19 09:00] LABS: MANUAL DIFF FLAG NO
[2023-05-19 09:40] LABS: Basophils Absolute Auto 0.1 X10*3/uL (0.0-0.2); Basophils Percent Auto 0.8 % (0-2); Eosinophils Absolute Auto 0.1 X10*3/uL (0.0-0.4); Eosinophils Percent Auto 1.3 % (0-4); Hematocrit 39.6 % (37.0-47.0); Imm Gran Abs Auto 0.02 X10*3/uL (0.00-0.03); Imm Gran Pct Auto 0.3 % (0.0-0.4); Lymphocytes Absolute Auto 2.9 X10*3/uL (1.2-4.9); Lymphocytes Percent Auto 37.5 % (20-40); Mean Corpuscular HGB Conc 32.8 g/dl (31.0-35.0); Mean Corpuscular Hemoglobin 31.3 pg (27.0-33.0); Mean Corpuscular Volume 95.4 fL (80.0-98.0); Mean Platelet Volume 10.6 fL (9.4-12.3); Monocytes Absolute Auto 0.5 X10*3/uL (0.1-1.2); Neutrophils Absolute Auto 4.1 x10*3/uL (2.0-8.3); Neutrophils Percent Auto 54.1 % (45-73); Platelet Count 220 X10*3/uL (160-400); Red Blood Count 4.15 X10*6/uL (4.20-5.50); Red Cell Distribution Width 12.6 % (11.0-16.0); White Blood Count 7.7 X10*3/uL (4.8-10.8)
[2023-05-19 10:05] LABS: INTERNATIONAL NORM RATIO 0.9 (0.9-1.1); Prothrombin Time 11.3 SEC (11.1-13.3)
[2023-05-19 10:33] LABS: Alanine Aminotransferase 24 U/L (0-31); Albumin Level 4.4 g/dL (3.5-5.0); Alkaline Phosphatase 56 U/L (39-117); Anion Gap 13 (12-20); Aspartate Amino Transferase 16 U/L (5-31); Bilirubin Total 0.7 mg/dL (0.0-1.0); Blood Urea Nitrogen 19 mg/dL (9-16); Calcium 9.8 mg/dL (8.4-10.2); Carbon Dioxide 25 mmol/L (22-29); Chloride 107 mmol/L (96-108); Estimated Glomerular Filt Rate > 60; Glucose Random 111 mg/dL (60-115); Potassium 4.2 mmol/L (3.3-5.1); Sodium 141 mmol/L (135-145); Total Protein 6.9 g/dL (6.5-8.0)
[2023-05-19 10:35] LABS: TSH reflex Free T4 3.25 uIU/mL (0.32-4.0)
== END 2023-05-19 08:34 | disposition home or self-care (01) ==
LOC: HO.LAB 08:33
PROVIDERS: PCP Internal Medicine; Visit Provider Nurse Practitioner Family
DX: Z01.818 Encounter for other preprocedural examination (principal); Z13.0 Encounter for screening for diseases of the blood and blood-forming organs and certain disorders involving the immune mechanism; Z13.29 Encounter for screening for other suspected endocrine disorder
CPT/HCPCS: 36415; 80053; 84443; 85025; 85610

== ENCOUNTER 2023-05-22 05:55 | Day surgery (SDC) | payer OTHER, SELFPAY ==
[2023-05-19 11:00] VITALS: BMI 30.8
--- NOTE | 2023-05-21 09:17 | P.CONAN_ITS ---
Documented by User: Vanesa Bruce NP 05/21/23 09:19 HPI - Anesthesia Eval Consult details Narrative: 68yo F for Right Small Finger Partial Dupuytrens Contracture Release Medically optimized Pulmo optimized PMFSH Active Problems Active Problems: All Active Problems (Updated 05/19/23 @ 08:05 by PRASHANT Garay) Encounter for pre-operative examination (Acute) Preop pulmonary/respiratory exam (Acute) Numbness of right hand (Acute) Dupuytren's contracture of right hand (Acute) Dyspnea on exertion (Acute) Environmental allergies (Acute) Asthma-COPD overlap syndrome (Acute) Pulmonary nodule (Acute) Asthma (Acute) Pneumonia (Acute) COVID-19 (Acute) Surgical History Surgical History (Updated 05/22/23 @ 08:41 by Ada Puente MD) History of hysterectomy for cancer Social History Social History Housing: Apartment Alcohol intake: current Alcohol intake frequency: a few times a week Alcohol type: beer Patient Tobacco Use Status: Former Tobacco user Tobacco use type: Cigarette e-Cigarette/Vaping Use: Never Used Second Hand Smoke Exposure: No Current occupational status: employed 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 Cognitive needs: No Hearing needs: No Vision needs: No Meds Allergies Allergy/AdvReac Type Severity Reaction Status Date / Time No Known Allergies Allergy Verified 05/19/23 07:48 [No Known Allergies*] Home Medications Medication Instructions Recorded Confirmed Last Taken Type omeprazole 20 mg capsule,delayed 20 mg PO DAILY 10/12/20 Unknown History release umeclidinium 62.5 mcg-vilanterol 1 inh inhalation DAILY 04/28/23 Unknown History 25 mcg/actuation powdr for inhalation (Anoro Ellipta) Exam Exam Date and Time: May 21, 2023 0917 Height,Weight and Vital Signs: Height 5 ft 6 in Weight 86.636 kg Pertinent Lab Results Pertinent Lab Results: Laboratory Tests 05/19/23 08:59 WBC 7.7 Hgb 13.0 Hct 39.6 Plt Count 220 Sodium 141 Potassium 4.2 Chloride 107 Carbon Dioxide 25 BUN 19 H Creatinine 0.76 Narrative Narrative: EKG 04/2023 NSR per PCP note ECHO 09/2022 Conclusions: - The left ventricular systolic function is normal. The calculated ejection fraction is 59% by biplane method. - E/E prime ratio is <8, consistent with normal filling pressures. - No obvious valvular pathology seen on this study. - There is no evidence of pulmonary hypertension. - There is no evidence of pericardial effusion. Assessment and Plan Assessment Anesthesia Assessment: Chart Reviewed Documented by User: Ada Puente MD 05/22/23 08:54 [facility] Active Problems Active Problems: All Active Problems (Updated 05/22/23 @ 07:35 by Ada Puente MD) Encounter for pre-operative examination (Acute) Preop pulmonary/respiratory exam (Acute) Numbness of right hand (Acute) Dupuytren's contracture of right hand (Acute) Dyspnea on exertion (Acute) Environmental allergies (Acute) Asthma-COPD overlap syndrome - reasonably well-controlled Pulmonary nodule (Acute) Pneumonia (Acute)- 08/2022 Family History Family history of problems with anesthesia: No Surgical History Surgical History (Updated 05/22/23 @ 08:41 by Ada Puente MD) History of hysterectomy for cancer History of Problems with Anesthesia: No Social History Social History Housing: Apartment Alcohol intake: current Alcohol intake frequency: a few times a week Alcohol type: beer Patient Tobacco Use Status: Former Tobacco user Tobacco use type: Cigarette e-Cigarette/Vaping Use: Never Used Second Hand Smoke Exposure: No Current occupational status: employed 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 Cognitive needs: No Hearing needs: No Vision needs: No Meds Allergies Allergy/AdvReac Type Severity Reaction Status Date / Time No Known Allergies Allergy Verified 05/19/23 07:48 [No Known Allergies*] Home Medications Medication Instructions Recorded Confirmed Last Taken Type omeprazole 20 mg capsule,delayed 20 mg PO DAILY 10/12/20 Unknown History release umeclidinium 62.5 mcg-vilanterol 1 inh inhalation DAILY 04/28/23 Unknown History 25 mcg/actuation powdr for inhalation (Anoro Ellipta) Exam Height,Weight and Vital Signs: Height 5 ft 6 in Weight 86.636 kg Vital Signs Temp Pulse Resp BP Pulse Ox O2 Del Method 05/22/23 06:28 97.5 F 78 16 136/76 98 Room Air Pertinent Lab Results Pertinent Lab Results: Laboratory Tests 05/19/23 08:59 WBC 7.7 Hgb 13.0 Hct 39.6 Plt Count 220 Sodium 141 Potassium 4.2 Chloride 107 Carbon Dioxide 25 BUN 19 H Creatinine 0.76 Airway Mallampati Class: II TM Dist: >3cm Neck ROM: Full Loose/Missing/Broken Teeth: No (Denies broken, loose, missing teeth ) Heart: RRR Lungs: CTAB Assessment and Plan Assessment Anesthesia Assessment: Anesthesia Plan Discussed Final Anesthetic Review Family History of Problems with Anesthesia: No History of Problems with Anesthesia: No NPO: Yes ASA Class: II Final Preanesthetic Review: No Changes in Pt Med Stat, Meds/Allgs Chart Reviewed, Consent Obtained/Reviewed and Anes Risks/Benef Reviewed Patient Risk: Low Procedure Risk: Low Assessment/Block/Sedation in SS: Assess/Block/Sedation-SS Anesthetic Plan Anesthetic Plan: GA and Regional Block Disposition: Standard PACU
[2023-05-22] VITALS (7 sets, daily range): BP systolic 115–136; BP diastolic 72–83; PULSE 73–83; RESP 11–16; TEMP 36.2–36.4; O2SAT 93–98
[2023-05-22] MEDS: Lactated Ringers 1,000 ML 100 ML IVCONT (06:38)
--- NOTE | 2023-05-22 07:52 | P.OP_ITS ---
Operative Note Operative Note Date of Service: 05/22/23 Narrative: Preop diagnosis: 1. right small finger Dupuytren's contracture Postop diagnosis: Same Procedure: 1. Right small finger Partial Dupuytren's fasciectomy 2. Right small finger radial digital nerve neurolysis and ulnar digital nerve neurolysis Surgeon: Jacquelyn Chatterjee MD Anesthesia: General anesthesia plus regional block Findings: Dupuytren's cord extending from the mid palm distally to the radial aspect of the D IP joint of the little small finger. Numerous sheet like attachments coming off of the cord from the proximal and distal aspects. I was able to bring the small finger into full extension at the MCP, PIP and D IP joints at the end of the case. Implants: None Tourniquet time: 110 minutes EBL: 5.0 ml Specimen: right small finger Dupuytren's cord Drains: None Complications: None Disposition: Brought to the recovery room in stable condition Plan: Follow-up in 10-14 days for wound check, suture removal and to check pathology OT appt on day of f/u to make a custom night spint and to begin OT Indications: The patient is a 68 year old woman with right small finger Dupuytren's contracture . The risks and benefits of operative treatment, including but not limited to risk of damage to blood vessels, nerves, tendons, infection, recurrence, persistent pain or numbness, incomplete resolution of preoperative symptoms, or need for further surgery were discussed with the patient and they wished to proceed with surgery. Procedure: Once consent was obtained patient was brought back to the operating suite and placed in the operating table in a supine position. A regional block was performed by the anesthesia team. Perioperative antibiotics and anesthesia was administered by the anesthesia team. A tourniquet was applied to the proximal aspect of the right upper extremity and the limb was prepped and draped in a standard surgical fashion. The limb was elevated exsanguinated with Esmarch bandage and the tourniquet inflated to 250 mm of mercury for a total tourniquet time of 110 minutes. I made a Abdullahi type incision extending along the Dupuytren's cord from the mid palm to the DIP flexion crease of the right small finger. The Incision was made with a 15. Blade through the skin the subcutaneous tissues. I then carefully dissected down to the level of the Dupuytren's cord beginning at the proximal aspect of the incision. This was done using tenotomy in iris scissors. Care was taken to protect the nearby neurovascular structures. The Dupuytren's cord was cut at its proximal aspect using tenotomy scissors. It was then gr asped with an Allis clamp. The Dupuytren's cord was then carefully dissected free in a proximal to distal direction using tenotomy scissors and again taking care to protect the nearby neurovascular structures. At about the A1 alfonso area I appreciated that the radial neurovascular bundle deviated from its normal anatomic position centrally to passed superficialthe Dupuytren's cord. The primary portion of the central cord then passed just radial to the PIP joint to the radial aspect of the D IP joint. A 2nd portion of the central cord however did also pass ulnarly and to the ulnaraspect of the middle phalanx. Great care was taken to dissect this Dupuytren's cord from the surrounding tissues while protecting the neurovascular structures. A neurolysis was performed on the radialneurovascular bundle carefully dissecting it free from the Dupuytren's cords as we proceeded from proximal to distal. there was also a thickened she like cord directly over the ulnar neurovascular bundle. A neurolysis was performed of the ulnar neurovascular bundle as well, clearing this sheet like tissue from over the nerve. Ultimately the Dupuytren's cord was dissected free from the flexor tendon sheath, proximal in middle phalanxes, and the skin, and passed to the back table to be sent for histopathology. This then allowed me to bring the MCP, PIP and D IP joints into full extension . At this point the tourniquet was deflated and hemostasis obtained with a brief period of local pressure . The wound was copiously irrigated with normal saline. The skin edges were reapproximated with 5-0 Prolene suture. The wound was infiltrated with some 0.25% plain Marcaine for postop pain control and a sterile dressing and volar splint holding the small and ring fingers in extension was applied. The patient appears to have tolerated the procedure well and with no complications. All digits were well vascularized conclusion of the case.
--- NOTE | 2023-05-22 07:52 | MHC.SHP ---
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 No changes have occurred unless specified. Time Spent With Patient Time: Total time managing care of this patient today ____ minutes.
== END 2023-05-22 12:13 | disposition home or self-care (01) ==
PROVIDERS: PCP Internal Medicine; Visit Provider Orthopaedic Surgery
PROC: (CPT 26045; principal; 2023-05-22 07:30)
DX: M72.0 Palmar fascial fibromatosis [Dupuytren] (principal); R20.0 Anesthesia of skin; J44.9 Chronic obstructive pulmonary disease, unspecified; R91.1 Solitary pulmonary nodule; Z87.01 Personal history of pneumonia (recurrent); Z79.51 Long term (current) use of inhaled steroids; Z79.899 Other long term (current) drug therapy; Z87.891 Personal history of nicotine dependence
CPT/HCPCS: 26123; 64702; 88304; 88305; J0690; J1100; J2250; J2405; J2795; J3010

== ENCOUNTER → 2023-05-22 05:55 | Outpatient (BNV) | payer OTHER, SELFPAY | PROVIDERS: PCP Internal Medicine; Visit Provider Orthopaedic Surgery | DX: M72.0 Palmar fascial fibromatosis [Dupuytren] (principal) | CPT/HCPCS: 26123 ==

== ENCOUNTER 2023-06-05 10:00 | Outpatient (AMB) | payer OTHER, SELFPAY ==
[2023-06-05 10:18] VITALS: BMI 30.7
--- NOTE | 2023-06-05 10:18 | MHC.OFFVIS ---
Intake Vital Signs 06/05/23 10:18 Height 5 ft 6 in Weight 190 lb BMI 30.7 Handedness Right Intake Visit Reasons: PO-Rt Small Finger dupuytrens 05/22 Intake Note: Lia is a 67 year old right hand dominant female who presents today for a post op appointment s/p right small finger dupuytrens 05/22/23 [place] . States she is doing well but is having discomfort and some throbbing pain. Allergies No Known Allergies [No Known Allergies*] Allergy (Verified 06/05/23 10:19) HPI PO-Rt Small Finger dupuytrens 05/22 HPI Details 68-year-old right hand dominant female who presents in the office today 2 weeks status post right small finger partial Dupuytren's fasciectomy and right small finger radial digital nerve neurolysis and ulnar digital nerve neurolysis, which was performed on 05/22/[address] Chatterjee. While in the office today the patient reports she is doing well, but does have some discomfort with some throbbing pain. 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 Cognitive needs: No Hearing needs: No Vision needs: No Review of Systems Const All systems reviewed & are unremarkable except as noted in HPI and below Physical Exam Vital Signs: BMI result Body Mass Index 30.7 Const General: cooperative, healthy appearing and no acute distress Resp Effort & Inspection: normal respiratory effort and able to speak in complete sentences Cardio Rate: regular rate Peripheral pulses: Peripheral pulses 2+ throughout GI Palpation (GI): Soft to palpation Skin Lesions: no lesions Rashes: no rashes Extrem Other: Right small finger: Able to lay hand flat down on the table. Incision site is clean, dry, and intact. No surrounding erythema or drainage. No signs of infection. Sensation intact. Capillary refill is brisk. Assessment & Plan Assessment & Plan (1) Dupuytren's contracture of right hand: Comment: Small finger Code(s): M72.0 - Palmar fascial fibromatosis [Dupuytren] (2) Numbness of right hand: Code(s): R20.0 - Anesthesia of skin (3) Asthma-COPD overlap syndrome: Code(s): J44.9 - Chronic obstructive pulmonary disease, unspecified Plan Ms. Nunez is a 68-year-old right hand dominant female who presents in the office today 2 weeks status post right small finger partial Dupuytren's fasciectomy and right small finger radial digital nerve neurolysis and ulnar digital nerve neurolysis, which was performed on 05/22/[address] Chatterjee. While in the office today the patient reports she is doing well, but does have some discomfort with some throbbing pain. Sutures were removed and steri-stripes were applied. She is able to begin to lay her hand flat on the table. She was given a night splint, off the shelf, to wear only at night time. She is now able to wash her hands with soap and water. She was instructed no heavy lifting about a cell phone for 4 weeks. The patient will be referred to occupational therapy to work on ROM. Follow up will be in 2 weeks for a ROM check, or sooner if needed. Orders: Orders OT Evaluation and Treatment Today M72.0 - Palmar fascial fibromatosis [Dupuytren] Patient Instructions: Scribed for Kristin Quintero PA-C by Angela Daniels medical records library professor, on 06/05/2023 at 10:07 am, EST. Coding Level of Care Code Global (82795) Diagnoses Dupuytren's contracture of right hand M72.0 Numbness of right hand R20.0 Asthma-COPD overlap syndrome J44.9
== END 2023-06-05 11:00 | disposition home or self-care (01) ==
PROVIDERS: PCP Internal Medicine; Visit Provider Physician Assistant
DX: M72.0 Palmar fascial fibromatosis [Dupuytren] (principal); R20.0 Anesthesia of skin; J44.9 Chronic obstructive pulmonary disease, unspecified
CPT/HCPCS: 99024

== ENCOUNTER → 2023-06-05 10:00 | Outpatient (BNVA) | payer OTHER, SELFPAY | PROVIDERS: PCP Internal Medicine; Visit Provider Physician Assistant ==

== ENCOUNTER 2023-06-13 10:06 | Outpatient (AMB) | payer OTHER, SELFPAY ==
--- NOTE | 2023-06-13 10:28 | MHC.OFFVIS ---
Intake Intake Visit Reasons: PO-Rt Small Finger dupuytrens 05/22 Intake Note: Lia is a 67 year old right hand dominant female who presents today for a post op appointment s/p right small finger dupuytrens 05/22/23 [place] . She states that she was able to get that brace from OT for her hand. Patient informed me about having some discomfort with movement. Allergies No Known Allergies [No Known Allergies*] Allergy (Verified 06/13/23 10:29) HPI PO-Rt Small Finger dupuytrens 05/22 HPI Details 68-year-old right hand dominant female who presents in the office today 3 weeks status post right small finger partial Dupuytren's fasciectomy and right small finger radial digital nerve neurolysis and ulnar digital nerve neurolysis, which was performed on 05/22/[address] Chatterjee. The patient reports she was able to get the brace from occupational therapy for her hand. She states she has some discomfort with movements. 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 Surround peeling skin. No signs of infection. No erythema or drainage. Able to extend all digits fully. Able to lay hand flat on the table. Lacking 1 cm from making a closed fist with the little finger. NVI. Assessment & Plan Assessment & Plan (1) Dupuytren's contracture of right hand: Comment: Small finger Code(s): M72.0 - Palmar fascial fibromatosis [Dupuytren] (2) Numbness of right hand: Code(s): R20.0 - Anesthesia of skin (3) Asthma-COPD overlap syndrome: Code(s): J44.9 - Chronic obstructive pulmonary disease, unspecified Plan Ms. Nunez is a 68-year-old right hand dominant female who presents in the office today 3 weeks status post right small finger partial Dupuytren's fasciectomy and right small finger radial digital nerve neurolysis and ulnar digital nerve neurolysis, which was performed on 05/22/[address] Chatterjee. The patient reports she was able to get the brace from occupational therapy for her hand. She states she has some discomfort with movements. The patient will continue to work with occupational therapy on ROM. Follow up will be in 2 weeks for a ROM check, or sooner if needed. Patient Instructions: Scribed for Kristin Quintero PA-C by Angela Daniels medical language specialist, on 06/13/2023 at 10:08 am, EST. Coding Level of Care Code Global (06243) Diagnoses Dupuytren's contracture of right hand M72.0 Numbness of right hand R20.0 Asthma-COPD overlap syndrome J44.9
== END 2023-06-13 10:37 | disposition home or self-care (01) ==
PROVIDERS: PCP Internal Medicine; Visit Provider Physician Assistant
DX: M72.0 Palmar fascial fibromatosis [Dupuytren] (principal); R20.0 Anesthesia of skin; J44.9 Chronic obstructive pulmonary disease, unspecified
CPT/HCPCS: 99024

== ENCOUNTER → 2023-06-13 10:06 | Outpatient (BNVA) | payer OTHER, SELFPAY | PROVIDERS: PCP Internal Medicine; Visit Provider Physician Assistant ==

== ENCOUNTER 2023-06-27 12:12 | Outpatient (AMB) | payer OTHER, SELFPAY ==
--- NOTE | 2023-06-27 12:21 | MHC.OFFVIS ---
Intake Vital Signs 06/27/23 12:22 Height 5 ft 6 in Weight 190 lb BMI 30.7 Intake Visit Reasons: PO-Rt Small Finger dupuytrens 05/22 Intake Note: Lia is a 68 year old female who presents today for a wound check. Allergies No Known Allergies [No Known Allergies*] Allergy (Verified 06/13/23 10:29) HPI PO-Rt Small Finger dupuytrens 05/22 HPI Details Ms. Nunez is a 68yo female who presents to the office today for followup of right small finger Duputren's fasciectomy on 05/22/[address] Chatterjee. Overall the patient is doing very well. She continues to work with OT on ROM. Cannot quite get her finger down to a full fist yet. Reports occasional pain and pain with using her hand to write. 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 Cognitive needs: No Hearing needs: No Vision needs: No Review of Systems Const All systems reviewed & are unremarkable except as noted in HPI and below Physical Exam Vital Signs: BMI result Body Mass Index 30.7 Const General: cooperative, healthy appearing and no acute distress Resp Effort & Inspection: normal respiratory effort and able to speak in complete sentences Cardio Rate: regular rate Peripheral pulses: Peripheral pulses 2+ throughout GI Palpation (GI): Soft to palpation Skin Lesions: no lesions Rashes: no rashes Extrem Other: Right hand incision site is clean, dry, intact and completely healed. No surrounding erythema or drainage. Little finger is lacking about 1 cm from making a closed fist. Sensation intact. Capillary refill is brisk. Assessment & Plan Assessment & Plan (1) Dupuytren's contracture of right hand: Comment: Small finger Code(s): M72.0 - Palmar fascial fibromatosis [Dupuytren] Plan: Ms. Nunez is a 68yo female who presents to the office today for followup of right small finger Duputren's fasciectomy on 05/22/[address] Chatterjee. Overall the patient is doing very well. She continues to work with OT on ROM. Cannot quite get her finger down to a full fist yet. Reports occasional pain and pain with using her hand to write. The patient will continue to work with occupational therapy on ROM. Follow up will be in 4 weeks for a ROM check, or sooner if needed. Coding Level of Care Code Global (78445) Diagnoses Dupuytren's contracture of right hand M72.0
[2023-06-27 12:22] VITALS: BMI 30.7
== END 2023-06-27 12:46 | disposition home or self-care (01) ==
PROVIDERS: PCP Internal Medicine; Visit Provider Physician Assistant
DX: M72.0 Palmar fascial fibromatosis [Dupuytren] (principal)
CPT/HCPCS: 99024

== ENCOUNTER → 2023-06-27 12:12 | Outpatient (BNVA) | payer OTHER, SELFPAY | PROVIDERS: PCP Internal Medicine; Visit Provider Physician Assistant ==

== ENCOUNTER 2023-07-03 11:00 | Outpatient (RCR) | payer OTHER, SELFPAY ==
--- NOTE | 2023-06-06 16:26 | MHC.OT.EP ---
[address] [phone] Occupational Therapy Plan of Care Patient Name: Lia Nunez Date of Evaluation: 06/06/23 Diagnosis: Dupuytrens contracture of right hand Pain Location: 310 right ulnar hand . ache. Mild pins and needles Pain Score: 3 Pain Scale Used: Numeric (0 - 10) Aggravating Factors: Hand ROM exercise and moderate use with gripping , pinch and pulling Alleviating Factors: Resting and avoiding use Assessment: Pt is a 68 yo female 2 wks s/p right hand small finger Dupuytrens Fasciectomy with sutures removed yesterday Today pt presents with right small finger closed incision, edema and joint stiffness. Passive digit flexion > active. Digit extension to neutral. Pt will benefit from a hand based volar gutter resting orthosis with digit extension for night wear and OT to regain right dominant hand ROM and hand function Frequency and Duration: The patient will be seen 2 x wk x 4 wks Short Term Goals: Demonstrate compliance with night orthosis for maintaining digit extension Demonstrated indep with HEP Demonstrate scar massage on scar with no scab or opening Passive digit flexion to palm AROM small finger 1 cm to palm Right hand use with moderately light activity. 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 Thank you once again for your referral.
--- NOTE | 2023-06-13 10:04 | MHC.OT.OP ---
[address] [phone] F: [phone] Occupational Therapy Progress Note Patient Name: Lia Nunez Diagnosis: Dupuytrens contracture of right hand Date of Surgery: 05/22/23 Date of Evaluation: 06/06/23 Treatments to Date: 3 Cancellations to Date: No Shows to Date: Subjective: I have had some pain recently Pain Score: 3 Pain Location: Right hand SF Status: Progressing Assessment: Good follow through with HEP for A/PROM, scar/wound management, edema management and nighttime orthosis. She continues to have moderate edema in hand, but reports it has improved, relatively low pain, increases w/ activity/exercise. Decreased small finger flexion due to joint stiffness and edema, coming about 1 cm tip-palm actively. Overall doing well. Short Term Goals: Demonstrate compliance with night orthosis for maintaining digit extension Demonstrated indep with HEP Demonstrate scar massage on scar with no scab or opening Passive digit flexion to palm AROM small finger 1 cm to palm Right hand use with moderately light activity. 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: Right small finger tip to DPC Right small finger extension to neutral Right library services coordinator to > 35 lb Report mild difficulty with daily activities with right dominant hand Frequency and Duration: The patient will be seen 2x/wk for 2 weeks Treatment Plan: Therapeutic Exercise Therapeutic Activity Home Exercise Program Splinting Patient Education Desensitization/Sensory Re-ed Edema Control ADL Training Paraffin Fluidotherapy MHP Cold Packs Joint Mobilization Soft Tissue Mobilization Scar management Electronically Signed By: Sherine Mir OT/s Reviewed/agree with student documentation: Yes Therapist: Chelsea Lozano OTR/L CHT
--- NOTE | 2023-06-13 10:06 | MHC.OT.EP ---
[address] [phone] Occupational Therapy Plan of Care Patient Name: Lia Nunez Date of Evaluation: 06/13/23 Diagnosis: Dupuytrens contracture of right hand Pain Location: 3/10 right ulnar hand . ache. Mild pins and needles Pain Score: 3 Pain Scale Used: Numeric (0 - 10) Aggravating Factors: Hand ROM exercise and moderate use with gripping , pinch and pulling Alleviating Factors: Resting and avoiding use Assessment: Pt is a 68 yo female 2 wks s/p right hand small finger Dupuytrens Fasciectomy with sutures removed yesterday Today pt presents with right small finger closed incision, edema and joint stiffness. Passive digit flexion > active. Digit extension to neutral. Pt will benefit from a hand based volar gutter resting orthosis with digit extension for night wear and OT to regain right dominant hand ROM and hand function Frequency and Duration: The patient will be seen 2x/wk for 2 weeks Short Term Goals: Demonstrate compliance with night orthosis for maintaining digit extension Demonstrated indep with HEP Demonstrate scar massage on scar with no scab or opening Passive digit flexion to palm AROM small finger 1 cm to palm Right hand use with moderately light activity. [facility] Goals: Right small finger tip to DPC Right small finger extension to neutral Right shuttle hand to > 35 lb Report mild difficulty with daily activities with right dominant hand Treatment Plan: Therapeutic Exercise Therapeutic Activity Home Exercise Program Splinting Patient Education Desensitization/Sensory Re-ed Edema Control ADL Training Paraffin Fluidotherapy MHP Cold Packs Joint Mobilization Soft Tissue Mobilization Scar management Electronically Signed By: Sherine Mir OT/s Please Sign and return to therapist. Thank you once again for your referral.
--- NOTE | 2023-08-01 13:16 | MHC.OT.DC ---
[address] [phone] F: [phone] Occupational Therapy Discharge Note Patient Name: Lia Nunez Provider: Kristin Quintero Diagnosis: Dupuytrens contracture of right hand Date of Surgery: 05/22/23 Date of Evaluation: 06/06/23 Date of Discharge: 08/01/23 Treatments to Date: 6 Cancellations to Date: 2 No Shows to Date: Discharge Status: Independent with HEP Patient Elected to Stop Discharge Summary: Improving digit pain, swelling, ROM and hand strength improving. 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 I anticipate little difficulty with activity modification to as needed Pt is maintaining digit extension with use of night extension splint and HEP Electronically Signed By: Micaela Guerrero OT CHT CLT Reviewed/agree with student documentation: Yes Therapist: Chelsea Lozano OTR/L CHT Please Sign and return to therapist, thank you for your referral.
== END 2023-08-01 13:16 | disposition home or self-care (01) ==
LOC: HO.OT 11:00
PROVIDERS: PCP Internal Medicine; Visit Provider Physician Assistant
DX: M72.0 Palmar fascial fibromatosis [Dupuytren] (principal)
CPT/HCPCS: 29130; 97014; 97110; 97140; 97166; 97530; 97760

== ENCOUNTER 2023-07-16 14:16 | Outpatient (AMB) | payer OTHER, SELFPAY ==
[2023-07-16 14:26] VITALS: BP 117/77; PULSE 108; O2SAT 96; BMI 32.4
--- NOTE | 2023-07-16 14:26 | A.OFFVIS_ITS ---
Intake Vital Signs 07/16/23 14:26 Height 5 ft 6 in Weight 200 lb 9.93 oz BMI 32.4 BP 117/77 Blood Pressure Location Rt brachial Position Sitting Pulse 108 H Pulse Source Doppler Pulse Oximetry (%) 96 Oxygen Delivery Method Room Air Intake Visit Reasons: copd Allergies No Known Allergies [No Known Allergies*] Allergy (Verified 07/16/23 14:28) HPI copd HPI Details 68-year-old lady, former 40+ pack-year s shanda, quit 2017, followed for asthma/COPD overlap syndrome. Patient has been using albuterol MDI and Anoro with reasonable control of her underlying symptoms. She denies any recent exacerbations. 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 Cognitive needs: No Hearing needs: No Vision needs: No Review of Systems Const Denies daytime sleepiness, Denies excessive sweating, Denies fatigue, Denies fever(s), Denies lethargy, Denies malaise, Denies night sweats, Denies snoring and Denies weight loss Eyes Denies blurry vision and Denies itchy eyes ENT Denies nasal congestion, Denies post nasal drip, Denies sinus pain, Denies sinus pressure and Denies other ( Thrush) Card Denies chest pain, Denies pedal edema, Denies dyspnea, Denies orthopnea and Denies paroxysmal nocturnal dyspnea Resp Denies cough, Denies hemoptysis, Denies excessive phlegm production, Denies dyspnea, Denies snoring and Denies wheezing GI Denies abdominal pain and Denies heartburn Musc Denies myalgias, Denies arthralgias and Denies joint swelling Skin/Breast Denies rash Neuro Denies memory loss and Denies seizure-like activity Psych Denies abnormal sleep pattern, Denies anxiety and Denies memory loss Endo Denies excessive sweating, Denies fatigue and Denies heat intolerance Garry/Lymph Denies easy bruising Aller/Immun Denies itchy eyes, Denies seasonal rhinorrhea and Denies wheezing Physical Exam Vital Signs: Last Vital Signs Pulse 108 H 07/16/23 14:26 BP 117/77 07/16/23 14:26 Pulse Ox 96 07/16/23 14:26 Oxygen Delivery Method Room Air 07/16/23 14:26 BMI result Body Mass Index 32.4 Const General: no acute distress and alert Nutritional Appearance: not obese Orientation/consciousness: Other orientation findings ( oriented) HEENT Head: Yes atraumatic Eyes General: appearance normal, both eyes and all related structures Sclerae: sclerae normal EOM: EOMs intact bilaterally Neck Neck: Yes supple Lymphatic: no lymphadenopathy noted Resp Effort & Inspection: normal respiratory effort and no use of accessory muscles Auscultation: clear to auscultation bilaterally Cardio Rate: regular rate Rhythm: regular rhythm Heart sounds: no gallops, no murmurs and no rubs Skin General skin exam: other ( warm) Extrem General: No clubbing, No cyanosis and No edema Assessment & Plan Assessment & Plan (1) Asthma-COPD overlap syndrome: Code(s): J44.9 - Chronic obstructive pulmonary disease, unspecified Plan: Baseline control on Anoro and albuterol MDI. Will add theophylline. (2) Pulmonary nodule: Code(s): R91.1 - Solitary pulmonary nodule Plan: Increasing pulmonary nodules, will repeat CT chest. Orders: Orders CT chest wo IV con 08/16/23 R91.1 - Solitary pulmonary nodule Coding Level of Care Code Est Pt Level 4 (81543) Diagnoses Asthma-COPD overlap syndrome J44.9 Pulmonary nodule R91.1
== END 2023-07-16 14:41 | disposition home or self-care (01) ==
PROVIDERS: PCP Internal Medicine; Visit Provider Internal Medicine Pulmonary Disease
DX: J44.9 Chronic obstructive pulmonary disease, unspecified (principal); R91.1 Solitary pulmonary nodule
CPT/HCPCS: 99214

== ENCOUNTER → 2023-07-16 14:16 | Outpatient (BNVA) | payer OTHER, SELFPAY | PROVIDERS: PCP Internal Medicine; Visit Provider Internal Medicine Pulmonary Disease ==

== ENCOUNTER 2023-07-25 08:50 | Outpatient (REF) | payer OTHER, SELFPAY ==
--- NOTE | 2023-07-25 | PFT_ITS ---
Indication: COPD Spirometry [FEV1 to FVC 67%; FEV1 2.24 L which is 103% predicted; FVC 3.33 L which is 103% predicted. No significant response to bronchodilators noted. Maximum voluntary ventilation 88% predicted] Lung Volumes [Total lung capacity 90% predicted; expiratory reserve volume 39% predicted] Diffusion Capacity [DLCO 81% predicted] Comparisons [None] Interpretation [There is a obstructive ventilatory defect consistent with mild COPD. No significant response to bronchodilators noted. Normal maximum voluntary ventilation. Lung volumes are normal except for decrease in the expiratory reserve volume secondary to an elevated BMI. Normal diffusing capacity. Clinical correlation warranted.] MTDD
== END 2023-07-25 08:51 | disposition home or self-care (01) ==
LOC: HO.RESP 08:50
PROVIDERS: PCP Internal Medicine; Visit Provider Internal Medicine Pulmonary Disease
DX: J44.9 Chronic obstructive pulmonary disease, unspecified (principal)
CPT/HCPCS: 94010; 94727; 94729

== ENCOUNTER → 2023-07-25 09:00 | Outpatient (BNV) | payer OTHER, SELFPAY | PROVIDERS: PCP Internal Medicine; Visit Provider Hospitalist | DX: J44.9 Chronic obstructive pulmonary disease, unspecified (principal) | CPT/HCPCS: 94060; 94727; 94729 ==

== ENCOUNTER 2023-07-30 13:34 | Outpatient (AMB) | payer OTHER, SELFPAY ==
--- NOTE | 2023-07-30 13:43 | MHC.OFFVIS ---
Intake Vital Signs 07/30/23 13:45 Height 5 ft 6 in Weight 200 lb BMI 32.3 Intake Visit Reasons: PO-Rt Small Finger dupuytrens 05/22/23 Intake Note: Lia 68 year old female presents to the office today for P/O visit of right small finger Duputren's fasciectomy on 05/22/[address] Chatterjee. States she is doing well however she is not able to make a full close fist due to her pinky not able to touch her palm. States she no longer feels pain. Allergies No Known Allergies [No Known Allergies*] Allergy (Verified 07/30/23 13:52) HPI PO-Rt Small Finger dupuytrens 05/22/23 HPI Details Lia is a 68 year old right hand dominant woman who presents for a ROM check S/P right small finger partial fasciectomy, DOS: 05/22/23. She denies any pain but says she continues to be unable to make a tight fist. She has completed her course of OT and continues to work on ROM exercises at home. She continues to have numbness in the index, middle, ring, and small fingers of her right hand, and some occasional numbness in her left hand. 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 She can bring the small finger now into essentially full extension which is a tremendous improvement. When attempting to make a fist she can actively bring her small finger to touch her palm but is not yet able to make a tight fist with the small finger. She still has a little bit of swelling in the small finger as well. Neuro: Decreased sensation in the median nerve distribution. Decreased sensation in the ulnar nerve distribution. She has more numbness in the radial aspect of the small finger, better but not normal sensation to the ulnar aspect of the ring finger and the ulnar aspect of the small finger. No thenar or intrinsic wasting Good APB muscle belly firing and good finger cross Vascular: Cap refill brisk Psych Appearance: grossly normal Affect: normal affect Attitude: cooperative Assessment & Plan Assessment & Plan (1) Dupuytren's contracture of right hand: Comment: Small finger Code(s): M72.0 - Palmar fascial fibromatosis [Dupuytren] (2) Bilateral hand numbness: Code(s): R20.0 - Anesthesia of skin Plan Assessment & Plan: 1. Right small finer Dupuytrens contracture, S/P partial fasciectomy DOS: 05/22/23 Pre-operative: MCP 90/PIP 70 Now: MCP 0/PIP 0 The patient appears to be doing well post-operatively She has completed her course of OT hand therapy but continues to have some difficulty with swelling & ROM I recommend she continue to work on at-home exercises She can follow up prn 2. Right hand numbness In all digits Symptoms intermittent, but daily, worse at night or with activities 3. Left hand numbness Currently occasional She was not scheduled for a NCS after this was ordered on 04/22/23 I ordered a bilateral NCS to assess for peripheral nerve compression She will follow up when completed for review. Scribed for Jacquelyn Chatterjee MD by Jesse Waldrop, medical office specialist, on 07/30/23 at 2:15 PM, EST. Orders: Orders NE nerve conduction velocity Today R20.0 - Anesthesia of skin, R20.2 - Paresthesia of skin Coding Level of Care Code Est Pt Level 3 (36088) Diagnoses Dupuytren's contracture of right hand M72.0 Bilateral hand numbness R20.0
[2023-07-30 13:45] VITALS: BMI 32.3
== END 2023-07-30 14:24 | disposition home or self-care (01) ==
PROVIDERS: PCP Internal Medicine; Visit Provider Orthopaedic Surgery
DX: M72.0 Palmar fascial fibromatosis [Dupuytren] (principal); R20.0 Anesthesia of skin
CPT/HCPCS: 99213

== ENCOUNTER → 2023-07-30 13:34 | Outpatient (BNVA) | payer OTHER, SELFPAY | PROVIDERS: PCP Internal Medicine; Visit Provider Orthopaedic Surgery ==

== ENCOUNTER 2023-08-21 12:50 | Outpatient (REF) | payer OTHER, SELFPAY ==
--- NOTE | ~2023-08-21 | CT_ITS ---
EXAMINATION: CT CHEST WITHOUT CONTRAST CLINICAL INFORMATION: Solitary pulmonary nodule. COMPARISON: 09/24/2022 and 03/07/2022 and 10/27/2020 TECHNIQUE: Multidetector volumetric CT imaging of the chest was done. Axial MIP volume rendering provided. Sagittal and coronal reformatted images were obtained. This CT examination was performed using dose optimization techniques as appropriate, variously including the following: *Automated exposure control *Adjustment of mA and/or kV according to patient size (this includes techniques or standardized protocols for targeted exams where dose is matched to indication/reason for exam; i.e. extremities or head) *Use of iterative reconstruction technique DLP: 162 mGy-cm FINDINGS: LUNGS: Subpleural reticular changes bilaterally with peripheral/subpleural groundglass opacities mild bronchiectasis. There are peribronchial groundglass opacities in bilateral upper lobes. 1.0 x 0.8 cm solid nodule superior segment left lower lobe on image 159 of series 6. 0.6 x 0.9 cm solid nodule left upper lobe on image 184 series 6. Central airways are patent. MEDIASTINUM: No bulky axillary, hilar or mediastinal lymphadenopathy. Great vessels are of normal caliber. Heart size is normal. No pericardial effusion. CORONARY ARTERY CALCIFICATION: None visualized on this study. PLEURA: There is no pleural effusion. No pleural mass or thickening. UPPER ABDOMEN: Indeterminate hypoattenuating mass in the liver measuring 3.1 x 3.1 cm on image 54 of series 3. No adrenal mass. OSSEOUS STRUCTURES: No destructive bone lesions. CT/CT chest wo IV con IMPRESSION: 0.9 cm solid nodule left upper lobe is new relative to 10/27/2020 and has been gradually increasing in size compared to more recent studies. Neoplastic involvement cannot be excluded. Stable 1.0 cm solid nodule superior segment left lower lobe since 11/14/2020. Indeterminate hypoattenuating hepatic mass measuring 3.1 x 3.1 cm. MRI abdomen is recommended for further characterization.
== END 2023-08-21 12:51 | disposition home or self-care (01) ==
LOC: HO.CT 12:50
PROVIDERS: PCP Internal Medicine; Visit Provider Internal Medicine Pulmonary Disease
DX: R91.1 Solitary pulmonary nodule (principal)
CPT/HCPCS: 71250

== ENCOUNTER 2023-08-29 13:53 | Outpatient (REF) | payer OTHER, SELFPAY ==
--- NOTE | 2023-08-29 13:57 | EMG_ITS ---
Chief complaint: Hand numbness, right worse than left Reason for referral: Evaluate for Carpal Tunnel Syndrome Referred by: Dr. Chatterjee Procedure done: Bilateral upper extremities NCS/EMG Precautions and/or limitations: None The limb temperature was monitored continuously and remained between 32-36 degrees C during the performance of the NCS. Nerve Conduction Studies Anti Sensory Summary Table ?Stim Site NR Onset (ms) Norm Onset (ms) Peak (ms) Norm Peak (ms) O-P Amp (?V) Norm O-P Amp Site1 Site2 Delta-0 (ms) Dist (cm) [place] (m/s) Norm [place] (m/s) Left Median Anti Sensory (2nd Digit) Wrist ? 3.1 3.7 <3.6 4.2 >10 Wrist 2nd Digit 3.1 14.0 45 Right Median Anti Sensory (2nd Digit) Wrist NR <3.6 >10 Wrist 2nd Digit 14.0 Right Radial Anti Sensory (Thumb) Forearm ? 1.3 1.9 <3.1 11.2 Forearm Thumb 1.3 0.0 Left Ulnar Anti Sensory (5th Digit) Wrist ? 1.9 2.8 <3.7 15.1 >15.0 Wrist 5th Digit 1.9 14.0 74 Right Ulnar Anti Sensory (5th Digit) Wrist ? 2.1 3.1 <3.7 15.3 >15.0 Wrist 5th Digit 2.1 14.0 67 Motor Summary Table ?Stim Site NR Onset (ms) Norm Onset (ms) O-P Amp (mV) Norm O-P Amp iAmp (mV) Amp (1st) (%) Site1 Site2 Delta-0 (ms) Dist (cm) Berlin (m/s) Norm [place] (m/s) Left Median Motor (Abd Poll Brev) Wrist ? 3.6 <3.9 6.2 >4.5 7.3 100.0 Elbow Wrist 3.9 21.0 54 >45 Elbow ? 7.5 6.0 7.0 96.8 Right Median Motor (Abd Poll Brev) Wrist ? 6.8 <3.9 6.0 >4.5 7.2 100.0 Elbow Wrist 3.4 19.0 56 >45 Elbow ? 10.2 6.1 7.4 101.7 Left Ulnar Motor (Abd Dig Minimi) Wrist ? 2.6 <3.0 5.9 >5 7.0 100.0 B Elbow Wrist 2.6 17.0 65 >45 B Elbow ? 5.2 5.1 6.5 86.4 A Elbow B Elbow 1.7 10.0 59 >45 A Elbow ? 6.9 4.7 6.0 79.7 Right Ulnar Motor (Abd Dig Minimi) Wrist ? 2.4 <3.0 7.8 >5 9.4 100.0 B Elbow Wrist 3.0 18.0 60 >45 B Elbow ? 5.4 6.7 8.4 85.9 A Elbow B Elbow 1.5 10.0 67 >45 A Elbow ? 6.9 6.3 8.0 80.8 EMG ?Side Muscle Nerve Root Ins Act Fibs Psw Amp Dur Poly Recrt Int Pat Comment Right 1stDorInt Ulnar C8-T1 Nml Nml Nml Nml Nml 0 Nml Complete Right FlexCarRad Median C6-7 Nml Nml Nml Nml Nml 0 Nml Complete Right Biceps Musculocut C5-6 Nml Nml Nml Nml Nml 0 Nml Complete Right Triceps Radial C6-7-8 Nml Nml Nml Nml Nml 0 Nml Complete Right Deltoid Axillary C5-6 Nml Nml Nml Nml Nml 0 Nml Complete Left 1stDorInt Ulnar C8-T1 Nml Nml Nml Nml Nml 0 Nml Complete Left FlexCarRad Median C6-7 Nml Nml Nml Nml Nml 0 Nml Complete Left Biceps Musculocut C5-6 Nml Nml Nml Nml Nml 0 Nml Complete Left Triceps Radial C6-7-8 Nml Nml Nml Nml Nml 0 Nml Complete Left Deltoid Axillary C5-6 Nml Nml Nml Nml Nml 0 Nml Complete FINDINGS: Right median motor nerve showed prolonged distal latency, normal amplitude and normal conduction velocity. Bilateral median sensory nerve showed prolonged peak latency. All other nerves tested were within normal. Concentric needle EMG was performed in selected muscles of the bilateral upper extremities. Study did not reveal signs of electric abnormalities as shown in the table below. IMPRESSION: 1. This is an abnormal study. 2. There is electrodiagnostic evidence for right moderate-severe and left mild median neuropathy at the wrist, consistent with carpal tunnel syndrome. 3. There is no electrodiagnostic evidence for ulnar neuropathy, brachial plexopathy, or cervical radiculopathy. Thank you for your kind referral. Rocio Martinez MD, TIFFANY Board Certified, [place] [employer] and [employer] (ABPMR) Board Certified, [place] [employer] Electro[employer]ostic [employer] (ABEM) CODIN [id number] x 2 MTDD
== END 2023-08-29 13:54 | disposition home or self-care (01) ==
LOC: HO.NEURO 13:53
PROVIDERS: PCP Internal Medicine; Visit Provider Orthopaedic Surgery
DX: R20.0 Anesthesia of skin (principal); R20.2 Paresthesia of skin
CPT/HCPCS: 95886; 95911

== ENCOUNTER → 2023-08-29 13:57 | Outpatient (BNV) | payer OTHER, SELFPAY | PROVIDERS: PCP Internal Medicine; Visit Provider Physical Medicine & Rehabilitation | DX: G56.03 Carpal tunnel syndrome, bilateral upper limbs (principal) | CPT/HCPCS: 95886; 95911 ==

== ENCOUNTER 2023-09-15 14:08 | Outpatient (REF) | payer OTHER, SELFPAY ==
--- NOTE | ~2023-09-15 | MR_ITS ---
EXAMINATION: MR ABDOMEN WITHOUT AND WITH CONTRAST CLINICAL INFORMATION: Follow-up right hepatic lobe hemangioma is COMPARISON: MRI of abdomen on 02/09/2009 TECHNIQUE: Examination was performed in a high field strength MRI scanner. Multiplanar multiphasic imaging of the abdomen was performed without IV contrast enhancement. Multiphasic Axial T1 weighted fat suppressed images of the upper abdomen were obtained after IV injection of 9 mL Gadavist. Coronal T1 weighted fat-suppressed images of the abdomen were obtained following the dynamic axial series. FINDINGS: LIVER: The liver is enlarged, measuring 20.4 cm in vertical height. Persistent left hepatic lobe segment 3 cavernous hemangioma with progressive centripetal contrast filling is seen measuring 3.0 cm in diameter (previous 2.8 cm), series 4 image #13. A smaller hemangioma with progressive centripetal contrast filling is seen in right hepatic lobe segment 8 measuring 0.8 cm in diameter (previously 1.2 cm), series 7 image #9. A smaller flash filling cavernous hemangioma measuring 1.1 cm in diameter (previously 0.9 cm) is seen at anterior border of right hepatic lobe segment 5, series 102 image #46. The calculated hepatic fat percentage is 14.5%, compatible with mild hepatic steatosis. HEPATOBILIARY: Gallbladder is distended, without filling defects. Common bile duct is not dilated. PANCREAS: No focal pancreatic lesion with abnormal signal can be seen. SPLEEN: Spleen is normal in size without focal lesion. ADRENAL: Bilateral adrenal glands are normal in shape and size. KIDNEYS: Bilateral kidneys are normal in size with a tiny 0.4 cm posterior superior right renal cortical cyst and a larger 1.3 cm medial posterior inferior right renal cortical nonenhancing simple cyst. Left parapelvic renal cysts are seen, for which no follow up imaging is recommended. Multilevel advanced degenerative lumbar disc disease and posterior disc protrusions are seen, sparing L5-S1. MR/MR abdomen wo/w con IMPRESSION: 1. Mild hepatomegaly and mild hepatic steatosis. 2. Persistent multiple hepatic cavernous hemangiomas with interval variation in size is. 3. Distended gallbladder without gallstone is seen. 4. Interval development of bilateral renal simple cysts, for which no follow up imaging is recommended.
[2023-09-15] MEDS: gadobutroL 10 ML VIAL IVPUSH (15:12)
== END 2023-09-15 14:09 | disposition home or self-care (01) ==
LOC: HO.MRI 14:08
PROVIDERS: PCP Internal Medicine; Visit Provider Internal Medicine Pulmonary Disease
DX: K76.9 Liver disease, unspecified (principal)
CPT/HCPCS: 74183; A9585

== ENCOUNTER 2023-09-16 10:56 | Outpatient (REF) | payer OTHER, SELFPAY ==
--- NOTE | ~2023-09-16 | PE_ITS ---
EXAMINATION: Fluorine-18 FDG PET/CT Scan CLINICAL INDICATION: Initial treatment management. Pulmonary nodules. PROCEDURE: 60 minutes following the intravenous administration of 14.9 mCi of fluorine 18 FDG, images from the base of the skull to the mid thighs were obtained using a combined PET/CT scanner with CT scan based attenuation correction. No intravenous contrast was administered. Transverse, coronal, sagittal, and volume reconstruction projections were obtained. The patient's blood glucose as determined by a finger stick, was 100 mg/dl immediately prior to injection. The radiotracer was injected intravenously through the left antecubital superficial vein, without any complications. Total CT exam dose-length product 916.14 mGy-cm * These CT images were obtained using dose optimization techniques as appropriate, variously including the following: Automated exposure control * Adjustment of mA and/or kV according to patient size (this includes techniques or standardized protocols for targeted exams where dose is matched to indication/reason for exam; i.e. extremities or head) * Use of iterative reconstruction technique COMPARISON: CT of the chest done on 08/21/2023 and the baseline study available CT scan done on 10/27/2020. FINDINGS: There appears to be skipped areas at the cervical, lumbosacral spine region as well as in the pelvis resulting in suboptimal study. The images were re-pushed again by the tech public area supervisor to PACS on 09/23/2023 without any improvement in quality of the images. SUV max REFERENCE: Blood: 3.2 (90/267). Liver: 4.4 (124/267). HEAD AND NECK: No abnormal radiotracer uptake. No large intracranial hemorrhage, acute territorial infarct or significant shift of midline structures. CHEST: Ports and Devices: None Lungs: Previously documented 0.9 cm solid left upper lobar lung nodule and 1.0 cm solid lung nodule at superior segment of the left lower lobe are reidentified. Both these 2 nodules do not show any tracer avidity. Given their size, and respiratory motion, potentially could be false negative. The remainder of the lung amaro otherwise appear unremarkable, unchanged. Pleura: No significant pleural effusion. Lymph Nodes: No tracer-avid mediastinal, hilar or internal mammary or axillary lymphadenopathy. Mediastinum: There is no significant pericardial effusion/thickening. Breasts/Chest Wall: No abnormal radiotracer uptake. ABDOMEN/PELVIS: Liver/Biliary System: No focal tracer-avid liver lesion. Previously documented presumed hemangioma involving left lobe of the liver measuring approximately 3 cm appear unchanged since 09/15/2023. The gallbladder appears unremarkable. Pancreas: Normal. Spleen: No abnormal radiotracer uptake. No evidence of splenomegaly. Adrenal Glands: No abnormal radiotracer uptake. Kidneys: No hydronephrosis, hydroureter or renal calculi bilaterally. Bowel: There is no significant bowel dilatation to suggest obstruction. Colonic diverticulosis without any CT features of superimposed acute diverticulitis. Lymph Nodes: No tracer avid retroperitoneal, mesenteric or pelvic and/or groin lymphadenopathy. Pelvic Organs: The urinary bladder is underdistended. MUSCULOSKELETAL: No suspicious focal tracer avid disease. VASCULAR: Calcific atherosclerotic disease of the aorta and is branches without aneurysm formation. THE SITE(S) OF MOST INTENSE FDG AVIDITY AND SUV MAX: No pathologic site of tracer avid disease. PET/PET CT fusion skull to thigh IMPRESSION: 1. Technically limited/suboptimal study with apparent areas of skipping in the region of the cervical, lumbosacral spine as well as in the pelvis. 2. The indexed left upper and left lower lobar lung nodules do not show any tracer avidity. Given their small size, and presence of respiratory motion artifact, may represent false negative study. Please note that some primary lung malignancies such as adenocarcinoma in situ, well-differentiated adenocarcinoma including mucinous adenocarcinoma, minimally invasive adenocarcinoma, and low-grade carcinoids may show minimal or no FDG avidity.
== END 2023-09-16 10:57 | disposition home or self-care (01) ==
LOC: HO.PET 10:56
PROVIDERS: PCP Internal Medicine; Visit Provider Internal Medicine Pulmonary Disease
DX: Z13.89 Encounter for screening for other disorder (principal)

== ENCOUNTER 2023-10-01 13:02 | Outpatient (AMB) | payer OTHER, SELFPAY ==
[2023-10-01 13:40] VITALS: BMI 32.3
--- NOTE | 2023-10-01 13:40 | A.OFFVIS_ITS ---
Intake Vital Signs 10/01/23 13:40 Height 5 ft 6 in Weight 200 lb BMI 32.3 Intake Visit Reasons: newprob- CTS RT Intake Note: Lia 68 yr old right hand dominant female presents today for a new problem visit for her right hand CTS. States symptoms have worsen after her sx. She is S/P right small finger Dupuytren's contracture 05/22/23. States her numbness increases at night time and is not able to feel her index at all in the morning. EMG done. Allergies No Known Allergies [No Known Allergies*] Allergy (Verified 10/01/23 13:46) HPI newprob- CTS RT HPI Details Lia is a 68 year old right hand dominant woman who returns for a NCS study of her bilateral hand numbness. She is S/P right small finger partial fasciectomy, DOS: 05/22/23. She continues to have numbness in all digits of her right hand, and some occasional numbness in her left hand. She says her symptoms are daily, worse at night, and are now constant in her index finger. 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 Cognitive needs: No Hearing needs: No Vision needs: No Review of Systems Const All systems reviewed & are unremarkable except as noted in HPI and below Physical Exam Vital Signs: BMI result Body Mass Index 32.3 Const General: no acute distress and alert Orientation/consciousness: patient oriented x3 Neuro General: patient oriented x3 Extrem Other: Evaluation of Right Upper Extremity: The patient is alert, oriented, and in no acute distress She can bring the small finger into full extension and closed to a fist Neuro: Dense numbness in the median nerve distribution Decreased but improved sensation in the ulnar nerve distribution. Good APB muscle belly firing and good finger cross Vascular: Cap refill brisk Nerve Conduction Study: IMPRESSION: 1. This is an abnormal study. 2. There is electrodiagnostic evidence for right moderate-severe and left mild median neuropathy at the wrist, consistent with carpal tunnel syndrome. 3. There is no electrodiagnostic evidence for ulnar neuropathy, brachial plexopathy, or cervical radiculopathy. Rocio Martinez MD, TIFFANY 08/29/23 Psych Appearance: grossly normal Affect: normal affect Attitude: cooperative Assessment & Plan Assessment & Plan (1) Carpal tunnel syndrome of right wrist: Code(s): G56.01 - Carpal tunnel syndrome, right upper limb (2) Carpal tunnel syndrome of left wrist: Code(s): G56.02 - Carpal tunnel syndrome, left upper limb Plan Assessment & Plan: 1. Right carpal tunnel syndrome, moderate-severe With dense numbness I educated her about this condition I discussed operative and non-operative treatment options The patient would like to proceed with surgery The risks and benefits of operative treatment were discussed with the patient and the patient wishes to proceed with surgery. These risks include, but are not limited to risk of damage to blood vessels, nerves, tendons, infection, recurrence, incomplete relief of preoperative symptoms, persistent pain, possible need for further surgery and the risks associated with regional blocks and anesthesia. The plan is to take the patient to the operating room sometime in the next few weeks for the following procedures: 1. Right carpal tunnel release, under local All of the preoperative paperwork including the consent was reviewed today. All the patient's questions were answered. The patient understands that they will be contacted by our contact center manager soon to schedule this procedure. She would like to be placed on the cancellation list and to have surgery soon, before she retired if possible She denies Diabetes, blood thinners, heart, kidney issues She has asthma & COPD 2. Left carpal tunnel syndrome, mild Currently occasional No intervention warranted at this time 3. Right small finer Dupuytrens contracture, S/P partial fasciectomy DOS: 05/22/23 Pre-operative: MCP 90/PIP 70 Now: MCP 0/PIP 0 Doing well with excellent range of motion. Scribed for Jacquelyn Chatterjee MD by Jesse Waldrop, medical researcher, on 10/01/23 at 2:00 PM, EST. Coding Level of Care Code Est Pt Level 4 (34691) Diagnoses Carpal tunnel syndrome of right wrist G56.01 Carpal tunnel syndrome of left wrist G56.02
== END 2023-10-01 14:06 | disposition home or self-care (01) ==
PROVIDERS: PCP Internal Medicine; Visit Provider Orthopaedic Surgery
DX: G56.03 Carpal tunnel syndrome, bilateral upper limbs (principal)
CPT/HCPCS: 99214

== ENCOUNTER → 2023-10-01 13:02 | Outpatient (BNVA) | payer OTHER, SELFPAY | PROVIDERS: PCP Internal Medicine; Visit Provider Orthopaedic Surgery ==

== ENCOUNTER 2023-10-28 13:43 | Outpatient (AMB) | payer OTHER, SELFPAY ==
[2023-10-28 13:54] VITALS: BP 118/67; PULSE 108; O2SAT 95; BMI 32.2
--- NOTE | 2023-10-28 13:54 | A.OFFVIS_ITS ---
Intake Vital Signs 10/28/23 13:54 Height 5 ft 6 in Weight 199 lb 8.293 oz BMI 32.2 BP 118/67 Blood Pressure Location Lt brachial Position Sitting Pulse 108 H Pulse Source Doppler Pulse Oximetry (%) 95 Oxygen Delivery Method Room Air Intake Visit Reasons: COPD Allergies No Known Allergies [No Known Allergies*] Allergy (Verified 10/28/23 13:57) HPI COPD HPI Details 68-year-old lady, former 40+ pack-year s shanda, quit 2017, followed for asthma/COPD overlap syndrome. Patient has been using albuterol MDI and Anoro with reasonable control of her underlying symptoms. She denies any recent exacerbations. MRI liver showing hemangiomas. PET-CT with no FDG activity in two 1 cm pulmonary nodules. 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 Cognitive needs: No Hearing needs: No Vision needs: No Review of Systems Const Denies daytime sleepiness, Denies excessive sweating, Denies fatigue, Denies fever(s), Denies lethargy, Denies malaise, Denies night sweats, Denies snoring and Denies weight loss Eyes Denies blurry vision and Denies itchy eyes ENT Denies nasal congestion, Denies post nasal drip, Denies sinus pain, Denies sinus pressure and Denies other ( Thrush) Card Denies chest pain, Denies pedal edema, Denies dyspnea, Denies orthopnea and Denies paroxysmal nocturnal dyspnea Resp Denies cough, Denies hemoptysis, Denies excessive phlegm production, Denies dyspnea, Denies snoring and Denies wheezing GI Denies abdominal pain and Denies heartburn Musc Denies myalgias, Denies arthralgias and Denies joint swelling Skin/Breast Denies rash Neuro Denies memory loss and Denies seizure-like activity Psych Denies abnormal sleep pattern, Denies anxiety and Denies memory loss Endo Denies excessive sweating, Denies fatigue and Denies heat intolerance Garry/Lymph Denies easy bruising Aller/Immun Denies itchy eyes, Denies seasonal rhinorrhea and Denies wheezing Physical Exam Vital Signs: Last Vital Signs Pulse 108 H 10/28/23 13:54 BP 118/67 10/28/23 13:54 Pulse Ox 95 10/28/23 13:54 Oxygen Delivery Method Room Air 10/28/23 13:54 BMI result Body Mass Index 32.2 Const General: no acute distress and alert Nutritional Appearance: not obese Orientation/consciousness: Other orientation findings ( oriented) HEENT Head: Yes atraumatic Eyes General: appearance normal, both eyes and all related structures Sclerae: sclerae normal EOM: EOMs intact bilaterally Neck Neck: Yes supple Lymphatic: no lymphadenopathy noted Resp Effort & Inspection: normal respiratory effort and no use of accessory muscles Auscultation: clear to auscultation bilaterally Cardio Rate: regular rate Rhythm: regular rhythm Heart sounds: no gallops, no murmurs and no rubs Skin General skin exam: other ( warm) Extrem General: No clubbing, No cyanosis and No edema Assessment & Plan Assessment & Plan (1) Pulmonary nodule: Code(s): R91.1 - Solitary pulmonary nodule Plan: Results of PET-CT reviewed. No FDG activity. Repeat CT chest in 6 months. (2) Asthma-COPD overlap syndrome: Code(s): J44.9 - Chronic obstructive pulmonary disease, unspecified Plan: Well controlled on current regimen of Stiolto and albuterol MDI. Continue current regimen. Coding Level of Care Code Est Pt Level 4 (93293) Diagnoses Pulmonary nodule R91.1 Asthma-COPD overlap syndrome J44.9
== END 2023-10-28 14:11 | disposition home or self-care (01) ==
PROVIDERS: PCP Internal Medicine; Visit Provider Internal Medicine Pulmonary Disease
DX: R91.1 Solitary pulmonary nodule (principal); J44.9 Chronic obstructive pulmonary disease, unspecified
CPT/HCPCS: 99214

== ENCOUNTER → 2023-10-28 13:43 | Outpatient (BNVA) | payer OTHER, SELFPAY | PROVIDERS: PCP Internal Medicine; Visit Provider Internal Medicine Pulmonary Disease ==

== ENCOUNTER 2023-12-04 10:12 | Day surgery (SDC) | payer OTHER, SELFPAY ==
[2023-12-04 10:50] VITALS: BMI 31.8
--- NOTE | 2023-12-04 11:37 | MHC.SHP ---
Pre-Procedural Eval Section A - 24 Hr Update-Section A only Date of Service: 12/04/23 The patient is an INPATIENT: No Changes since office visit: No Cold of Flu in the past 2 weeks, No New Medical Problems, No Changes in Medication and No Patient answered all questions The patient has been examined within 24 hours of the surgical procedure. The History & Physical has been completed within 30 days and I have reviewed it.: Yes Section B - Complete if H&P > 30 days Chief Complaint: Carpal tunnel syndrome, right upper limb Allergies: Allergies Allergy/AdvReac Type Severity Reaction Status Date / Time No Known Allergies Allergy Verified 10/28/23 13:57 [No Known Allergies*] Plan I have reviewed the history and physical and performed a pertinent physical examination on my patient. No changes have occurred unless specified. Time Spent With Patient Time: Total time managing care of this patient today ____ minutes.
--- NOTE | 2023-12-04 11:37 | W.PM.OPN ---
Operative Note Operative Note Date of Service: 12/04/23 Narrative: Preop diagnosis: 1. Right Carpal tunnel syndrome Postop diagnosis: same Procedure: 1. Right Carpal tunnel release Surgeon: Jacquelyn Chatterjee MD Anesthesia: local block using 1% lidocaine with epinephrine Findings: Thickened transverse carpal ligament. EBL: Less than 5 mL Specimens: None Complications: None Disposition: Brought to recovery room in stable condition Plan: Follow-up for 10-14 days for wound check and suture removal Indications: The patient is 68 years old, with right carpal tunnel syndrome that has been unresponsive to nonoperative management. The risks and benefits of operative treatment including but not limited to risk of damage to blood vessels, nerves, tendons, infection, persistent pain, persistent symptoms, or possible need for additional surgery were discussed with the patient and the patient wishes to proceed with surgery. Procedure: Once consent was obtained a local block was performed using a combination of 1% lidocaine with epinephrine. The patient was then brought back to the operating suite and placed on the operative table in supine position. The right upper extremity was prepped and draped in a standard surgical fashion. Once assured that we had a good block, a 2.0 cm longitudinal incision was made centered over the carpal tunnel. The incision was made through the skin to the subcutaneous tissues using a #15 blade. Dissection was made down to the level of the transverse carpal ligament with care being taken to protect the palmar cutaneous nerve. Once the transverse carpal ligament was clearly visualized, a longitudinal incision was made in the transverse carpal ligament 1st using a #15 blade, then using tenotomy scissors under direct visualization. Care was taken to look for and protect the motor branch of the median nerve when seen in this area. Once satisfied with our carpal tunnel release the wound was copiously irrigated with normal saline and hemostasis was obtained with a brief period of local pressure. The skin edges were reapproximated with some 5.0 nylon suture material and a sterile dressing was applied. The patient appears to have tolerated the procedure well and with no complications. All digits were well vascularized at the conclusion of the case.
[2023-12-04 13:07] VITALS: BP 149/78; PULSE 87; RESP 14; O2SAT 97
== END 2023-12-04 13:08 | disposition home or self-care (01) ==
PROVIDERS: PCP Internal Medicine; Visit Provider Orthopaedic Surgery
PROC: (CPT 64721; principal; 2023-12-04 13:30)
DX: G56.01 Carpal tunnel syndrome, right upper limb (principal); N20.0 Calculus of kidney; J44.9 Chronic obstructive pulmonary disease, unspecified; Z90.710 Acquired absence of both cervix and uterus; Z79.899 Other long term (current) drug therapy; Z87.891 Personal history of nicotine dependence
CPT/HCPCS: 64721; J0171

== ENCOUNTER → 2023-12-04 10:12 | Outpatient (BNV) | payer OTHER, SELFPAY | PROVIDERS: PCP Internal Medicine; Visit Provider Orthopaedic Surgery | DX: G56.01 Carpal tunnel syndrome, right upper limb (principal) | CPT/HCPCS: 64721 ==

== ENCOUNTER 2023-12-16 13:37 | Outpatient (AMB) | payer OTHER, SELFPAY ==
[2023-12-16 13:43] VITALS: BMI 31.8
--- NOTE | 2023-12-16 13:43 | MHC.OFFVIS ---
Vital Signs 12/16/23 13:43 Height 5 ft 6.5 in Weight 200 lb BMI 31.8 Intake Visit Reasons: PO RT CTR 12/04/23 AR Intake Note: Lia 68 yr old female presents today for her PO visit for her right CTR 12/04/23 AR. States symptoms have improved and is doing well. Sutures removed and steri strips applied. Allergies No Known Allergies [No Known Allergies*] Allergy (Verified 12/16/23 13:51) HPI HPI PO RT CTR 12/04/23 AR: Details: Lia is a 68 year old right hand dominant woman who returns S/P right carpal tunnel release, DOS: 12/04/23. She says she is doing well and her sensation has been improving. She continues to have some numbness but good resolution of her nighttime symptoms. She is S/P right small finger partial fasciectomy, DOS: 05/22/23. She works in the [employer]. 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 Sutures removed and Steri-Strips applied She can make a fist and extend all her digits Sensation is improving but she continues to have numbness in the median nerve distribution Cap refill is brisk Nerve Conduction Study: IMPRESSION: 1. This is an abnormal study. 2. There is electrodiagnostic evidence for right moderate-severe and left mild median neuropathy at the wrist, consistent with carpal tunnel syndrome. 3. There is no electrodiagnostic evidence for ulnar neuropathy, brachial plexopathy, or cervical radiculopathy. Rocio Martinez MD, TIFFANY 08/29/23 Psych Appearance: grossly normal Affect: normal affect Attitude: cooperative Assessment & Plan Assessment & Plan (1) Carpal tunnel syndrome of right wrist: Code(s): G56.01 - Carpal tunnel syndrome, right upper limb Category: Medical (2) Carpal tunnel syndrome of left wrist: Code(s): G56.02 - Carpal tunnel syndrome, left upper limb Category: Medical Plan Assessment & Plan: 1. Right carpal tunnel syndrome, S/P release DOS: 12/04/23 Pre-operatively with dense numbness Now with improving sensation but she continues to have numbness in the median nerve distribution, with good relief of her nighttime symptoms. The patient appears to be doing well post-operatively I educated her about the post-operative course I explained that it can take up to 9 months for her sensation to improve. I discussed activity modifications, she is to lift nothing heavier than a cellphone for the next two weeks She will perform gentle ROM exercises at home She should avoid any underwater activities for the next 5 days She should gently massage about the incision site to reduce the risk of hypersensitivity She works in the [employer], she was given a note to return to work on 01/05/24. She can follow up prn 2. Left carpal tunnel syndrome, mild Currently occasional No intervention warranted at this time 3. Right small finer Dupuytrens contracture, S/P partial fasciectomy DOS: 05/22/23 Pre-operative: MCP 90/PIP 70 Now: MCP 0/PIP 0 Doing well with excellent range of motion. Scribed for Jacquelyn Chatterjee MD by shalonda Agosto scribe, on 12/16/23 at 2:25 PM, EST. Scribe Plan - Not visible on output: Scribed for Jacquelyn Chatterjee MD by Jesse Waldrop medical social worker, on [ ] at [ ], EST. Coding Level of Care Code Global (49278) Diagnoses Carpal tunnel syndrome of right wrist G56.01 Carpal tunnel syndrome of left wrist G56.02
== END 2023-12-16 14:38 | disposition home or self-care (01) ==
PROVIDERS: PCP Internal Medicine; Visit Provider Orthopaedic Surgery
DX: G56.03 Carpal tunnel syndrome, bilateral upper limbs (principal)
CPT/HCPCS: 99024

== ENCOUNTER → 2023-12-16 13:37 | Outpatient (BNVA) | payer OTHER, SELFPAY | PROVIDERS: PCP Internal Medicine; Visit Provider Orthopaedic Surgery ==

== ENCOUNTER 2024-04-21 08:55 | Outpatient (REF) | payer OTHER, SELFPAY ==
--- NOTE | ~2024-04-21 | CT_ITS ---
EXAMINATION: CT CHEST WITHOUT CONTRAST CLINICAL INFORMATION: Pulmonary nodules, follow-up COMPARISON: 08/21/2023, 09/04/2022, 03/07/2022, 10/27/2020 CT chest. PET/CT the 2023. TECHNIQUE: Multidetector volumetric CT imaging of the chest was done. Axial MIP volume rendering provided. Sagittal and coronal reformatted images were obtained. This CT examination was performed using dose optimization techniques as appropriate, variously including the following: *Automated exposure control *Adjustment of mA and/or kV according to patient size (this includes techniques or standardized protocols for targeted exams where dose is matched to indication/reason for exam; i.e. extremities or head) *Use of iterative reconstruction technique DLP: 163 mGy-cm FINDINGS: PULMONARY NODULES: -In the lateral inferior left upper lobe, there is a slightly smaller 0.8 cm oval nodule (series 5, image 215), previously measuring 0.9 cm. This is consistent with a benign entity. There appears to be adjacent immediately distal mucoid impaction of a peripheral bronchiole. -In the superior segment of the left lower lobe, there is a slightly smaller 0.9 cm oval nodule (series 5, image 194), previously measuring 1.0 cm. This is consistent with a benign entity. -There are numerous small 2-3 mm calcified and noncalcified nodules bilaterally, unchanged and benign. -There are no definite new or enlarging pulmonary nodules identified. LUNGS: -Mild to moderate centrilobular emphysema again noted. -Mild subpleural reticular changes are present throughout the bilateral lower lobes, and left greater than right upper lobes. No middle lobe involvement. These findings appear similar and unchanged. -Previously seen diffuse bronchial wall thickening has improved, reflecting improved chronic otitis. -Linear scarring in the lingular segment is stable. -There are no pleural effusions or pleural masses. There is no pneumothorax. MEDIASTINUM: -Normal thyroid. -No abnormal lymphadenopathy. -Normal aorta and pulmonary arteries. -Central airways normal. -Heart size normal. No pericardial effusion. -Esophagus appears normal. CORONARY ARTERY CALCIFICATION: No significant calcification seen. AXILLA\CHEST WALL: No lymphadenopathy. No masses. UPPER ABDOMEN: -There is diffuse fatty infiltration of liver. No focal liver abnormality. -Remainder of the upper abdominal structures appear normal. OSSEOUS STRUCTURES: -There are no suspicious lytic or blastic bone lesions. There are no fractures. There are mild degenerative changes in the spine. CT/CT chest wo IV con IMPRESSION: 1. Minimally smaller pulmonary nodules in the lateral left upper lobe measuring 0.8 cm, and in the superior segment left lower lobe measuring 0.9 cm. Stability is consistent with benignity. 2. No new or enlarging pulmonary nodules. 3. Mild to moderate centrilobular emphysema. Stable mild subpleural reticular changes. 4. Minimal thickening of the small airways, improved from the prior exam, likely reflecting improved chronic bronchitis. 5. Diffuse fatty infiltration of the liver. 6. Additional ancillary findings as discussed in the body of the report. Fleischner guidelines were followed. Electronically signed by: Kavon Gray MD 06/18/2024 10:54 AM ARPAN NIEVES
== END 2024-04-21 08:56 | disposition home or self-care (01) ==
LOC: HO.CT 08:55
PROVIDERS: PCP Internal Medicine; Visit Provider Internal Medicine Pulmonary Disease
DX: R91.1 Solitary pulmonary nodule (principal)
CPT/HCPCS: 71250

== ENCOUNTER → 2024-04-21 08:56 | Outpatient (BNV) | payer OTHER, SELFPAY | PROVIDERS: PCP Internal Medicine; Visit Provider Radiology Diagnostic Radiology | DX: R91.1 Solitary pulmonary nodule (principal) | CPT/HCPCS: 71250 ==

== ENCOUNTER 2024-05-12 13:49 | Outpatient (AMB) | payer OTHER, SELFPAY ==
--- NOTE | 2024-05-12 13:55 | MHC.OFFVIS ---
Vital Signs 05/12/24 13:56 Height 5 ft 6.5 in Weight 203 lb 14.841 oz BMI 32.4 BP 127/77 Blood Pressure Location Lt brachial Position Sitting Pulse 92 Pulse Source Doppler Pulse Oximetry (%) 96 Oxygen Delivery Method Room Air Intake Visit Reasons: COPD Allergies No Known Allergies [No Known Allergies*] Allergy (Verified 05/12/24 14:00) HPI HPI COPD: Details: 69-year-old lady, former 40+ pack-year smoker, quit 2017, followed for asthma/COPD overlap syndrome. Patient has been using albuterol MDI and Anoro with reasonable control of her underlying symptoms. She denies any recent exacerbations. MRI liver showing hemangiomas. PET-CT with no FDG activity in two 1 cm pulmonary nodules. Repeat CT chest in 04/16/2024 with results not available for this visit, but on my review bolus nodules do not show changes in measurement. 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 Cognitive needs: No Hearing needs: No Vision needs: No Review of Systems Const Denies daytime sleepiness, Denies excessive sweating, Denies fatigue, Denies fever(s), Denies lethargy, Denies malaise, Denies night sweats, Denies snoring and Denies weight loss Eyes Denies blurry vision and Denies itchy eyes ENT Denies nasal congestion, Denies post nasal drip, Denies sinus pain, Denies sinus pressure and Denies other ( Thrush) Card Denies chest pain, Denies pedal edema, Denies dyspnea, Denies orthopnea and Denies paroxysmal nocturnal dyspnea Resp Denies cough, Denies hemoptysis, Denies excessive phlegm production, Denies dyspnea, Denies snoring and Denies wheezing GI Denies abdominal pain and Denies heartburn Musc Denies myalgias, Denies arthralgias and Denies joint swelling Skin/Breast Denies rash Neuro Denies memory loss and Denies seizure-like activity Psych Denies abnormal sleep pattern, Denies anxiety and Denies memory loss Endo Denies excessive sweating, Denies fatigue and Denies heat intolerance Garry/Lymph Denies easy bruising Aller/Immun Denies itchy eyes, Denies seasonal rhinorrhea and Denies wheezing Physical Exam Vital Signs: Last Vital Signs Pulse 92 05/12/24 13:56 BP 127/77 05/12/24 13:56 Pulse Ox 96 05/12/24 13:56 Oxygen Delivery Method Room Air 05/12/24 13:56 BMI result Body Mass Index 32.4 Const General: no acute distress and alert Nutritional Appearance: not obese Orientation/consciousness: Other orientation findings ( oriented) HEENT Head: Yes atraumatic Eyes General: appearance normal, both eyes and all related structures Sclerae: sclerae normal EOM: EOMs intact bilaterally Neck Neck: Yes supple Lymphatic: no lymphadenopathy noted Resp Effort & Inspection: normal respiratory effort and no use of accessory muscles Auscultation: clear to auscultation bilaterally Cardio Rate: regular rate Rhythm: regular rhythm Heart sounds: no gallops, no murmurs and no rubs Skin General skin exam: other ( warm) Extrem General: No clubbing, No cyanosis and No edema Assessment & Plan Assessment & Plan (1) Asthma-COPD overlap syndrome: Code(s): J44.9 - Chronic obstructive pulmonary disease, unspecified Category: Medical Plan: Reasonably well controlled on current regimen of Stiolto and albuterol MDI. Continue current regimen. (2) Pulmonary nodule: Code(s): R91.1 - Solitary pulmonary nodule Category: Medical Plan: To left-sided pulmonary nodules 9 and 10 mm with no significant changes on my measurement on follow-up CT scan from March of 2024. [address] scan in 12 months. Orders: Orders CT chest wo IV con 04/12/25 R91.1 - Solitary pulmonary nodule Coding Level of Care Code Est Pt Level 4 (44776) Diagnoses Asthma-COPD overlap syndrome J44.9 Pulmonary nodule R91.1
[2024-05-12 13:56] VITALS: BP 127/77; PULSE 92; O2SAT 96; BMI 32.4
== END 2024-05-12 14:18 | disposition home or self-care (01) ==
PROVIDERS: PCP Internal Medicine; Visit Provider Internal Medicine Pulmonary Disease
DX: J44.9 Chronic obstructive pulmonary disease, unspecified (principal); R91.1 Solitary pulmonary nodule
CPT/HCPCS: 99214

== ENCOUNTER → 2024-05-12 13:49 | Outpatient (BNVA) | payer OTHER, SELFPAY | PROVIDERS: PCP Internal Medicine; Visit Provider Internal Medicine Pulmonary Disease ==

== ENCOUNTER 2024-11-19 13:29 | Outpatient (AMB) | payer OTHER, SELFPAY ==
[2024-11-19 13:37] VITALS: BP 128/84; PULSE 108; O2SAT 96; BMI 32.9
--- NOTE | 2024-11-19 13:37 | A.OFFVIS_ITS ---
Vital Signs 11/19/24 13:37 Height 5 ft 6.5 in Weight 207 lb 3.752 oz BMI 32.9 BP 128/84 Blood Pressure Location Lt brachial Position Sitting Pulse 108 H Pulse Source Pulse Oximeter Pulse Oximetry (%) 96 Oxygen Delivery Method Room Air Intake Visit Reasons: COPD End Matcher Required: No Allergies No Known Allergies [No Known Allergies*] Allergy (Verified 11/19/24 13:41) HPI HPI COPD: Details: 69-year-old lady, former 40+ pack-year smoker, quit 2017, followed for ast hma/COPD overlap syndrome. Patient has been using albuterol MDI and Stiolto with reasonable control of her underlying symptoms. She denies any recent exacerbations. MRI liver showing hemangiomas. PET-CT with no FDG activity in two 1 cm pulmonary nodules. Repeat CT chest in 04/16/2024 shows stable pulmonary nodule. 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 Cognitive needs: No Hearing needs: No Vision needs: No Review of Systems Const Denies daytime sleepiness, Denies excessive sweating, Denies fatigue, Denies fever(s), Denies lethargy, Denies malaise, Denies night sweats, Denies snoring and Denies weight loss Eyes Denies blurry vision and Denies itchy eyes ENT Denies nasal congestion, Denies post nasal drip, Denies sinus pain, Denies sinus pressure and Denies other ( Thrush) Card Denies chest pain, Denies pedal edema, Denies dyspnea, Denies orthopnea and Denies paroxysmal nocturnal dyspnea Resp Denies cough, Denies hemoptysis, Denies excessive phlegm production, Denies dyspnea, Denies snoring and Denies wheezing GI Denies abdominal pain and Denies heartburn Musc Denies myalgias, Denies arthralgias and Denies joint swelling Skin/Breast Denies rash Neuro Denies memory loss and Denies seizure-like activity Psych Denies abnormal sleep pattern, Denies anxiety and Denies memory loss Endo Denies excessive sweating, Denies fatigue and Denies heat intolerance Garry/Lymph Denies easy bruising Aller/Immun Denies itchy eyes, Denies seasonal rhinorrhea and Denies wheezing Physical Exam Vital Signs: Last Vital Signs Pulse 108 H 11/19/24 13:37 BP 128/84 11/19/24 13:37 Pulse Ox 96 11/19/24 13:37 Oxygen Delivery Method Room Air 11/19/24 13:37 BMI result Body Mass Index 32.9 Const General: no acute distress and alert Nutritional Appearance: not obese Orientation/consciousness: Other orientation findings ( oriented) HEENT Head: Yes atraumatic Eyes General: appearance normal, both eyes and all related structures Sclerae: sclerae normal EOM: EOMs intact bilaterally Neck Neck: Yes supple Lymphatic: no lymphadenopathy noted Resp Effort & Inspection: normal respiratory effort and no use of accessory muscles Auscultation: clear to auscultation bilaterally Cardio Rate: regular rate Rhythm: regular rhythm Heart sounds: no gallops, no murmurs and no rubs Skin General skin exam: other ( warm) Extrem General: No clubbing, No cyanosis and No edema Assessment & Plan Assessment & Plan (1) Asthma-COPD overlap syndrome: Code(s): J44.9 - Chronic obstructive pulmonary disease, unspecified Category: Medical Plan: Well controlled on current regimen of Stiolto and albuterol MDI. Continue current regimen. (2) Pulmonary nodule: Code(s): R91.1 - Solitary pulmonary nodule Category: Medical Plan: Results of follow-up CT chest reviewed, stable pulmonary nodule, will repeat CT chest in March of 2025. Coding Level of Care Code Est Pt Level 4 (57370) Diagnoses Asthma-COPD overlap syndrome J44.9 Pulmonary nodule R91.1
== END 2024-11-19 14:10 | disposition home or self-care (01) ==
LOC: HO.HPS 13:30
PROVIDERS: PCP Internal Medicine; Visit Provider Internal Medicine Pulmonary Disease
DX: J44.9 Chronic obstructive pulmonary disease, unspecified (principal); R91.1 Solitary pulmonary nodule
CPT/HCPCS: 99214

== ENCOUNTER 2025-04-08 12:49 | Outpatient (REF) | payer MEDICARE, SELFPAY ==
--- NOTE | ~2025-04-08 | CT_ITS ---
EXAMINATION: CT CHEST WITHOUT CONTRAST CLINICAL INFORMATION: Pulmonary nodule COMPARISON: April 21, 2024. TECHNIQUE: Multidetector volumetric CT imaging of the chest was done. Axial MIP volume rendering provided. Sagittal and coronal reformatted images were obtained. This CT examination was performed using dose optimization techniques as appropriate, variously including the following: *Automated exposure control *Adjustment of mA and/or kV according to patient size (this includes techniques or standardized protocols for targeted exams where dose is matched to indication/reason for exam; i.e. extremities or head) *Use of iterative reconstruction technique DLP: 172 mGy centimeter. FINDINGS: CERTIFIED LACTATION COUNSELOR: No hyperinflation. Cardiac mediastinal silhouette size is normal. Patient's large body habitus. Both upper extremities at the size of the head. LUNGS: 9 mm noncalcified ovoid shaped pulmonary nodule, superior segment left lower lung lobe. 5.4 mm noncalcified pulmonary nodule, left upper lung lobe. 1 mm noncalcified pulmonary nodule superior segment left upper lung lobe. 1 mm noncalcified pulmonary nodule, right upper lung lobe. 1 mm calcified nodule, right upper lung lobe. 1 mm calcified pulmonary nodule, right middle lung lobe. 1 mm calcified pulmonary nodule in the periphery of the right lower lung lobe. 1 mm noncalcified pulmonary nodule, right lung base. 3 mm subpleural pulmonary nodule, right lower lung lobe. Pulmonary groundglass in the periphery of the lungs pronounced in the lower lung lobes. Scarring in the right middle lung lobe and lingula. MEDIASTINUM: No mediastinal lymphadenopathy. Heart is not enlarged. No pericardial effusion. No pneumomediastinum. No hemomediastinum. No hemopericardium. No aneurysm, thoracic aorta. Calcified plaques in the aortic valve. CORONARY ARTERY CALCIFICATION: None visualized on this study. PLEURA: No pleural effusion. No pneumothorax. No calcified pleural plaques. AXILLA: No lymphadenopathy. UPPER ABDOMEN: Heterogeneous decreased density, liver parenchyma. OSSEOUS STRUCTURES: Multilevel spondylosis throughout the axial skeleton without acute fracture or listhesis. No lytic or blastic lesions. Sternum is intact. No acute rib fractures. 2.5 cm fluid density nodule beneath the skin in the posterior right midline upper back and C7-T1 level. CT/CT chest wo IV con IMPRESSION: Nonspecific noncalcified and calcified pulmonary nodules the most conspicuous in the left lower lung lobe with similar morphology and distribution pattern since prior examination. Probable sebaceous cyst, posterior right upper proximal. Probable hepatic steatosis. Fleischner guidelines were followed. Electronically signed by: Abdias Hoff MD 04/08/2025 01:43 PM EDT RP
--- OUTSIDE RECORDS SUMMARY | 2025-04-08 15:12 | XMS_ITS | Patient Health Record ---
Author Organization [facility] Address [address] [place] [address] Care Team Providers Care It Consultant Name Role Phone Po Raphael MAGAÑA Primary Care Provider Jesus Solano Unavailable [phone] Reason For Referral No Information Medications Medication SIG (Take, Route, Fr equency, Duration) Notes Start Date End Date Status Antacid Active Stool Softener Activ e Avastin Active MoviPrep 100 GM as directed Orally a s directed for 1 dose 05/25/2013 Active Problems Problem Type SNOMED Code ICD Code Onset Dates Problem Status W/U Status Risk Notes Problem Irritable bowel syndrome (36438724) Irritable bowel syndrome (564.1) Active confirmed Problem Feces contents abnormal (524291374) Heme + stool (792.1) Active confirmed Plan Of Treatment Future Test Test Name Order Date COLONOSCOPY 05/25/2013 Insurance Providers Payer Name Payer Address Payer Phone Subscriber Number Group Number Insured Name Patient Relationship to Insured Coverage Start Date Coverage End Date [employer] [place] [address] [address] [place] [address] [id number] SHADI HAMILTON Self - patient is the insured Medical (General) History Medical History History ICD Code Colonoscopy 02/2009-no coliti s, no microscopic colitis;neg. colon[place] [address] oHng Upper endoscopy, 2005-small HH, no [place] tt's GERD Ovarian cancer-as below Denies ME,DM,CVA,Lung disease,renal dise ase Decreased vision left eye Hepatic hemangiomas and liver cysts on l iver MRI in 2008 Surgical History Surgery Date(Month/Year) [facility] for ovarian cancer 1999
== END 2025-04-08 12:50 | disposition home or self-care (01) ==
LOC: HO.CT 12:49
PROVIDERS: PCP Internal Medicine; Visit Provider Internal Medicine Pulmonary Disease
DX: R91.1 Solitary pulmonary nodule (principal)
CPT/HCPCS: 71250

== ENCOUNTER → 2025-04-08 12:51 | Outpatient (BNV) | payer MEDICARE, SELFPAY | PROVIDERS: PCP Internal Medicine; Visit Provider Radiology Diagnostic Radiology | DX: R91.8 Other nonspecific abnormal finding of lung field (principal) | CPT/HCPCS: 71250 ==

== ENCOUNTER 2025-05-04 10:57 | Outpatient (AMB) | payer MEDICARE, SELFPAY ==
--- NOTE | 2025-05-04 11:03 | A.OFFVIS_ITS ---
Vital Signs 05/04/25 11:04 Height 5 ft 6.5 in Weight 206 lb BMI 32.7 BP 127/82 Blood Pressure Location Lt brachial Position Sitting Pulse 107 H Pulse Source Pulse Oximeter Pulse Oximetry (%) 96 Oxygen Delivery Method Room Air Intake Visit Reasons: copd Allergies No Known Allergies (No Known Allergies*) Allergy (Verified 05/04/25 11:10) HPI HPI copd: Details: 69-year-old lady, former 40+ pack-year smoker, quit 2017, followed for asthma/COPD overlap syndrome. MRI liver showing hemangiomas. PET-CT with no FDG activity in two 1 cm pulmonary nodules. Repeat CT chest in March of 2025 with stable pulmonary nodules. Unfortunately, recently she was not able to afford her Stiolto and her symptoms are not as well controlled. She continues on albuterol MDI. 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 Cognitive needs: No Hearing needs: No Vision needs: No Review of Systems Const Denies daytime sleepiness, Denies excessive sweating, Denies fatigue, Denies fever(s), Denies lethargy, Denies malaise, Denies night sweats, Denies snoring and Denies weight loss Eyes Denies blurry vision and Denies itchy eyes ENT Denies nasal congestion, Denies post nasal drip, Denies sinus pain, Denies sinus pressure and Denies other ( Thrush) Card Denies chest pain, Denies pedal edema, Denies dyspnea, Denies orthopnea and Denies paroxysmal nocturnal dyspnea Resp Denies cough, Denies hemoptysis, Denies excessive phlegm production, Denies dyspnea, Denies snoring and Denies wheezing GI Denies abdominal pain and Denies heartburn Musc Denies myalgias, Denies arthralgias and Denies joint swelling Skin/Breast Denies rash Neuro Denies memory loss and Denies seizure-like activity Psych Denies abnormal sleep pattern, Denies anxiety and Denies memory loss Endo Denies excessive sweating, Denies fatigue and Denies heat intolerance Garry/Lymph Denies easy bruising Aller/Immun Denies itchy eyes, Denies seasonal rhinorrhea and Denies wheezing Physical Exam Vital Signs: Last Vital Signs Pulse 107 H 05/04/25 11:04 BP 127/82 05/04/25 11:04 Pulse Ox 96 05/04/25 11:04 Oxygen Delivery Method Room Air 05/04/25 11:04 BMI result Body Mass Index 32.7 Const General: no acute distress and alert Nutritional Appearance: not obese Orientation/consciousness: Other orientation findings ( oriented) HEENT Head: Yes atraumatic Eyes General: appearance normal, both eyes and all related structures Sclerae: sclerae normal EOM: EOMs intact bilaterally Neck Neck: Yes supple Lymphatic: no lymphadenopathy noted Resp Effort & Inspection: normal respiratory effort and no use of accessory muscles Auscultation: clear to auscultation bilaterally Cardio Rate: regular rate Rhythm: regular rhythm Heart sounds: no gallops, no murmurs and no rubs Skin General skin exam: other ( warm) Extrem General: No clubbing, No cyanosis and No edema Assessment & Plan Assessment & Plan (1) Asthma-COPD overlap syndrome: Code(s): J44.9 - Chronic obstructive pulmonary disease, unspecified Category: Medical Plan: Suboptimally controlled as patient can not afford Stiolto, will switch to fluticasone/salmeterol. Continue albuterol MDI. (2) Pulmonary nodule: Code(s): R91.1 - Solitary pulmonary nodule Category: Medical Plan: Results of follow-up CT chest from March of 2025 reviewed, stable pulmonary nodules. Will repeat CT chest in March of 2026. Orders: Orders CT chest wo IV con 04/04/26 R91.1 - Solitary pulmonary nodule Medications: New fluticasone propion-salmeterol 250-50 mcg/dose 1 inh inhalation BID 1 ea 6RF Discontinued tiotropium-olodaterol 2.5-2.5 mcg/actuation (Stiolto Respimat) Discontinued Reason: Doctor's Order 2 puffs inhalation Q24H 30 days 4 grams 0RF Coding Level of Care Code Est Pt Level 4 (96003) Diagnoses Asthma-COPD overlap syndrome J44.9 Pulmonary nodule R91.1
[2025-05-04 11:04] VITALS: BP 127/82; PULSE 107; O2SAT 96; BMI 32.7
== END 2025-05-04 11:23 | disposition home or self-care (01) ==
LOC: HO.HPS 10:57
PROVIDERS: PCP Internal Medicine; Visit Provider Internal Medicine Pulmonary Disease
DX: J44.9 Chronic obstructive pulmonary disease, unspecified (principal); R91.1 Solitary pulmonary nodule
CPT/HCPCS: 99214

== ENCOUNTER → 2025-05-04 10:57 | Outpatient (BNVA) | payer MEDICARE, SELFPAY | PROVIDERS: PCP Internal Medicine; Visit Provider Internal Medicine Pulmonary Disease | DX: R91.1 Solitary pulmonary nodule (principal); J44.9 Chronic obstructive pulmonary disease, unspecified | CPT/HCPCS: 99212 ==